=== PATIENT | male | born 1965 | race African-American/Black ===

== ENCOUNTER 2018-05-01 11:59 | Inpatient (IN) | payer OTHER ==
[2018-05-01 12:52] VITALS: BMI 27.4
--- NOTE | 2018-05-01 14:16 | HP ---
CIWA Score - CIWA Score Nausea/Vomitin Muscle Tremors: 2 Anxiety: 2 Agitation: 2 Paroxysmal Sweats: 1-Minimal Palms Moist Orientation: 0-Oriented Tacttile Disturbances: 1-Very Mild Itch/Numbness Auditory Disturbances: 1-Very Mild Visual Disturbances: 1-Very Mild Sensitivity Headache: 2-Mild CIWA-Ar Total Score: 14 Admission ROS BHS - HPI Chief Complaint: i need help to stop drinking alcohol .cocaine Allergies/Adverse Reactions: Allergies Allergy/AdvReac Type Severity Reaction Status Date / Time No Known Allergies Allergy Verified 05/01/18 14:26 History of Present Illness: this 53 years old male with alcohol and cocaine dependence,seeking detox, withdrawal symptom,last treatment 01/29 [facility] completed hiv positive [id number] on medication neuropathy asthma nicotine dependence multiple admissions but keep relapsing Exam Limitations: No Limitations - Ebola screening Have you traveled outside of the country in the last 21 days: No Have you had contact with anyone from an Ebola affected area: No Have you been sick,other than usual withdrawal symptoms: No Do you have a fever: No - Review of Systems Constitutional: Loss of Appetite, Malaise, Night Sweats, Changes in sleep, Weakness, Unintentional Wgt. Loss EENT: reports: Nose Congestion Respiratory: reports: Other (asthma) Cardiac: reports: No Symptoms Reported, Other (cardiomyopathy) GI: reports: Diarrhea, Nausea, Abdominal cramping : reports: No Symptoms Reported Musculoskeletal: reports: Back Pain, Muscle Pain Integumentary: reports: Dryness Neuro: reports: Headache, Tremors Endocrine: reports: No Symptoms Reported Hematology: reports: No Symptoms Reported, Other (hiv) Psychiatric: reports: No Sypmtoms Reported, Judgement Intact, Mood/Affect Appropiate, Orientated x3 (insomnia) Patient History - Patient Medical History Hx Anemia: No Hx Asthma: Yes (on albutrol inhaler) Hx Chronic Obstructive Pulmonary Disease (COPD): No Hx Cancer: No Hx Cardiac Disorders: Yes (cardiomyopathy) Hx Congestive Heart Failure: No Hx Hypertension: No Hx Hypercholesterolemia: No Hx Pacemaker: No HX Cerebrovascular Accident: No Hx Seizures: No Hx Dementia: No Hx Diabetes: No Hx Gastrointestinal Disorders: Yes (gerd) Hx Liver Disease: No Hx Genitourinary Disorders: No Hx Sexually Transmitted Disorders: No Hx Renal Disease (ESRD): No Hx Thyroid Disease: No Hx Human Immunodeficiency Virus (HIV): Yes (since 1997) Hx Hepatitis C: No Hx Depression: No Hx Suicide Attempt: No Hx Bipolar Disorder: No Hx Schizophrenia: No Other Medical History: no suicidal,no homicidal - Patient Surgical History Past Surgical History: No - Smoking Cessation Smoking history: Never smoked - Substance & Tx. History Hx Alcohol Use: Yes Hx Substance Use: Yes Substance Use Type: Alcohol, Cocaine Hx Substance Use Treatment: Yes (01/29 [facility]) - Substances Abused Alcohol Route: Oral Frequency: Daily Amount used: 25-96 oz beers or 1 pint liquor Age of first use: 19 Date of Last Use: 05/01/18 Cocaine Route: Smoking Frequency: 1-3 times last 30 days Amount used: $100 and up Age of first use: 29 Date of Last Use: 04/27/18 Family Disease History - Family Disease History Family Disease History: Other: Father (alcohol), Mother (alcohol) Admission Physical Exam BHS - Vital Signs Vital Signs: Vital Signs - 24 hr 05/01/18 12:49 Temperature 97 F L Pulse Rate 78 Respiratory 18 Rate Blood Pressure 131/79 - Physical General Appearance: Yes: Moderate Distress, Tremorous, Irritable, Sweating, Anxious HEENTM: Yes: Normal ENT Inspection, RASHAWN, Pharynx Normal Respiratory: Yes: Lungs Clear, Normal Breath Sounds, No Respiratory Distress Neck: Yes: Within Normal Limits, Supple, Trachea in good position Breast: Yes: Within Normal Limits Cardiology: Yes: Within Normal Limits, Regular Rhythm, Regular Rate, S1, S2 Abdominal: Yes: Within Normal Limits, Normal Bowel Sounds, Soft Genitourinary: Yes: Within Normal Limits Back: Yes: Muscle Spasm Musculoskeletal: Yes: Back pain, Muscle Pain Extremities: Yes: Tremors Neurological: Yes: 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 intact, Alert, Motor Strength 5/5 Integumentary: Yes: Dry Lymphatic: Yes: Within Normal Limits - Diagnostic (1) Alcohol dependence with uncomplicated withdrawal Current Visit: Yes Status: Acute (2) Cocaine dependence Current Visit: Yes Status: Acute (3) HIV (human immunodeficiency virus infection) Current Visit: Yes Status: Acute (4) Asthma Current Visit: Yes Status: Acute (5) Neuropathy Current Visit: Yes Status: Acute (6) Cardiomyopathy Current Visit: Yes Status: Acute (7) Positive PPD Current Visit: Yes Status: Acute (8) Insomnia Current Visit: Yes Status: Acute Cleared for Admission [facility] - Detox or Rehab [facility] Level of Care: Medically Managed Detox Regimen/Protocol: Librium [facility] Breath Alcohol Content Breath Alcohol Content: 0.086 Urine Drug Screen - Results Drug Screen Negative: No Urine Drug Screen Results: TALI-Cocaine
[2018-05-01] MEDS ORDERED: MAGNESIUM CITRATE 300 ML BOTTLE PO PRN (14:33)
[2018-05-01] MEDS ORDERED: IBUPROFEN 400 MG TABLET (FP) PO PRN (14:33)
[2018-05-01] MEDS ORDERED: MENTHOL/PHENOL 1 EACH UD MM PRN (14:33)
[2018-05-01] MEDS ORDERED: MAGNESIUM HYDROX 2400MG/30ML ORAL SUSPENSION 30 ML CUP PO PRN (14:33)
[2018-05-01] MEDS ORDERED: ACETAMINOPHEN 325 MG TABLET (FP) PO PRN (14:33)
[2018-05-01] MEDS ORDERED: guaiFENesin/D-METHORPHAN HB 10 ML UNIT-DOSE CUPS PO PRN (14:33)
[2018-05-01] MEDS ORDERED: MAG HYDROX/AL HYDROX/SIMETH 30 ML UNIT-DOSE CUP PO PRN (14:33)
[2018-05-01] MEDS ORDERED: hydrOXYzine PAMOATE 50 MG CAPSULE (FP) PO PRN (14:33)
[2018-05-01] MEDS ORDERED: LOPERAMIDE HCL 2 MG CAPSULE PO PRN (14:33)
[2018-05-01] MEDS ORDERED: chlordiazePOXIDE HCL 25 MG CAPSULE PO PRN (14:33)
[2018-05-01] MEDS ORDERED: P-EPHED 60MG/TRIPROLIDI 2.5MG TABLET PO PRN (14:33)
[2018-05-01] MEDS ORDERED: ALBUTEROL SO4 8 GM HFA INHALER IH PRN (14:39)
[2018-05-01] MEDS ORDERED: PATIENT'S OWN MEDICATION (NON-FORMULARY) (Pregabalin [Lyrica -] 150 MG) PO PRN (14:39)
--- NOTE | 2018-05-01 15:38 | EKG ---
Test Reason : Blood Pressure : / mmHG Vent. Rate : 066 BPM Atrial Rate : 066 BPM P-R Int : 146 ms QRS Dur : 084 ms QT Int : 366 ms P-R-T Axes : 070 054 242 degrees QTc Int : 383 ms NORMAL SINUS RHYTHM POSSIBLE LEFT ATRIAL ENLARGEMENT LEFT VENTRICULAR HYPERTROPHY WITH REPOLARIZATION ABNORMALITY ST ELEVATION, CONSIDER EARLY REPOLARIZATION, PERICARDITIS, OR INJURY ABNORMAL ECG NO PREVIOUS ECGS AVAILABLE Confirmed by ELIZABETH ORTIZ, ORLY ([id number]) on 05/01/2018 3:37:54 PM Referred By: Confirmed By:ORLY JOHNSON MD
[2018-05-01] MEDS: chlordiazePOXIDE HCL 25 MG CAPSULE PO SCH ×2 (17:28→22:30)
[2018-05-01 17:51] LABS: URINE APPEARANCE CLEAR; URINE BILIRUBIN NEGATIVE (<2.0 mg/dL); URINE COLOR COLORLESS; URINE GLUCOSE (UA) NEGATIVE (NEGATIVE); URINE KETONE NEGATIVE (NEGATIVE); URINE LEUK ESTERASE NEGATIVE (NEGATIVE); URINE NITRITE NEGATIVE (NEGATIVE); URINE PROTEIN NEGATIVE (NEGATIVE); URINE UROBILINOGEN NEGATIVE mg/dL (0.2-1.0)
[2018-05-01] MEDS ORDERED: MELATONIN 5 MG TABLETS PO PRN (22:00)
[2018-05-01] MEDS: PREGABALIN 75 MG CAPSULE PO SCH (22:30)
[2018-05-01] MEDS: THIAMINE HCL 100 MG TABLET (FP) PO SCH (22:30)
[2018-05-02] MEDS: chlordiazePOXIDE HCL 25 MG CAPSULE PO SCH ×4 (06:10→22:26)
[2018-05-02 10:16] LABS: HEMATOCRIT 40.9 % (35.4-49); HEMOGLOBIN 13.5 GM/dL (11.7-16.9); MCHC 33.1 g/dl (32.0-35.9); MEAN CELL VOLUME 96.6 fl (80-96); PLATELET COUNT 139 K/MM3 (134-434); RBC 4.24 M/mm3 (4.00-5.60); RDW 14.3 % (11.9-15.9)
[2018-05-02] MEDS: PREGABALIN 75 MG CAPSULE PO SCH ×2 (10:21→22:27)
[2018-05-02] MEDS: LISINOPRIL 5 MG TABLET (FP) PO SCH (10:21)
[2018-05-02] MEDS: PRENATAL VITAMINS W/ FOLIC ACID TABLET (FP) PO SCH (10:21)
[2018-05-02 10:44] LABS: ALBUMIN 3.6 g/dl (3.4-5.0); ALK PHOS 57 U/L (45-117); ANION GAP 8 MMOL/L (8-16); BILIRUBIN,TOTAL 0.6 mg/dL (0.2-1); BLOOD UREA NITROGEN 11 mg/dL (7-18); CALCIUM 9.5 mg/dL (8.5-10.1); CHLORIDE 108 mmol/L (98-107); CO2 27 mmol/L (21-32); CREATININE 1.3 mg/dL (0.55-1.3); GLUCOSE,RANDOM 94 mg/dL (74-106); SGOT/AST 27 U/L (15-37); SGPT/ALT 30 U/L (13-61); SODIUM 143 mmol/L (136-145); TOT PROT 6.8 g/dl (6.4-8.2)
--- NOTE | 2018-05-02 11:50 | PN ---
S CIWA - CIWA Score Nausea/Vomitin-No Nausea/No Vomiting Muscle Tremors: 4-Moderate,w/Arms Extend Anxiety: 3 Agitation: 3 Paroxysmal Sweats: 3 Orientation: 0-Oriented Tacttile Disturbances: 0-None Auditory Disturbances: 0-None Visual Disturbances: 0-None Headache: 0-None Present CIWA-Ar Total Score: 13 BHS Progress Note (SOAP) Subjective: sweats interrupted sleep agitation I need cream for my acne on my face irritable Objective: 05/02/18 11:48 Vital Signs Temperature 97.9 F 05/02/18 09:25 Pulse Rate 62 05/02/18 09:25 Respiratory Rate 18 05/02/18 09:25 Blood Pressure 104/69 05/02/18 09:25 O2 Sat by Pulse Oximetry (%) Laboratory Tests 05/01/18 05/02/18 05/02/18 17:30 07:00 07:00 WBC 3.0 L RBC 4.24 Hgb 13.5 Hct 40.9 MCV 96.6 H MCH 32.0 MCHC 33.1 RDW 14.3 Plt Count 139 MPV 11.0 Sodium 143 Potassium 4.0 Chloride 108 H Carbon Dioxide 27 Anion Gap 8 BUN 11 Creatinine 1.3 Creat Clearance w eGFR 57.53 Random Glucose 94 Calcium 9.5 Total Bilirubin 0.6 AST 27 ALT 30 Alkaline Phosphatase 57 Total Protein 6.8 Albumin 3.6 Urine Color Colorless Urine Appearance Clear Urine pH 6.0 Ur Specific [place] 1.002 L Urine Protein Negative Urine Glucose (UA) Negative Urine Ketones Negative Urine Blood Negative Urine Nitrite Negative Urine Bilirubin Negative Urine Urobilinogen Negative Ur Leukocyte Esterase Negative RPR Titer 05/02/18 07:00 WBC RBC Hgb Hct MCV MCH MCHC RDW Plt Count MPV Sodium Potassium Chloride Carbon Dioxide Anion Gap BUN Creatinine Creat Clearance w eGFR Random Glucose Calcium Total Bilirubin AST ALT Alkaline Phosphatase Total Protein Albumin Urine Color Urine Appearance Urine pH Ur Specific [place] Urine Protein Urine Glucose (UA) Urine Ketones Urine Blood Urine Nitrite Urine Bilirubin Urine Urobilinogen Ur Leukocyte Esterase RPR Titer Nonreactive aaox3 ambulating no acute distress Assessment: 05/02/18 11:49 withdrawal sx Plan: continue detox increase fluids cleocin topical solution ordered.
[2018-05-02] MEDS ORDERED: FLU VACCINE QUAD 60 MCG/0.5 ML (MDV 18-19) IM ONE (12:00)
[2018-05-02] MEDS: CLINDAMYCIN PHOSPHATE 1% TOPICAL SOLUTION 30 ML BOTTLE TP SCH ×2 (16:12→22:28)
[2018-05-02] MEDS: THIAMINE HCL 100 MG TABLET (FP) PO SCH (22:26)
[2018-05-03] MEDS: chlordiazePOXIDE HCL 25 MG CAPSULE PO SCH ×2 (05:07→10:45)
[2018-05-03] MEDS: CLINDAMYCIN PHOSPHATE 1% TOPICAL SOLUTION 30 ML BOTTLE TP SCH ×2 (09:57→22:33)
[2018-05-03] MEDS: PRENATAL VITAMINS W/ FOLIC ACID TABLET (FP) PO SCH (10:44)
[2018-05-03] MEDS: PREGABALIN 75 MG CAPSULE PO SCH ×2 (10:44→22:32)
[2018-05-03] MEDS: LISINOPRIL 5 MG TABLET (FP) PO SCH (10:44)
--- NOTE | 2018-05-03 14:31 | PN ---
S CIWA - CIWA Score Nausea/Vomitin Muscle Tremors: 2 Anxiety: 3 Agitation: 4-Moderately Restless Paroxysmal Sweats: 3 Orientation: 0-Oriented Tacttile Disturbances: 0-None Auditory Disturbances: 0-None Visual Disturbances: 0-None Headache: 0-None Present CIWA-Ar Total Score: 14 BHS Progress Note (SOAP) Subjective: Sleep disturbance sweats Objective: 05/03/18 14:30 A & O x 3 Noted ambulating steadily on unit Not in acute distress Vital Signs Temperature 98.3 F 05/03/18 14:03 Pulse Rate 82 05/03/18 14:03 Respiratory Rate 18 05/03/18 14:03 Blood Pressure 100/54 L 05/03/18 14:03 O2 Sat by Pulse Oximetry (%) Assessment: 05/03/18 14:30 withdrawal sx anxiety Plan: continue detox
[2018-05-03] MEDS: chlordiazePOXIDE 5 MG CAPSULE PO SCH ×2 (17:17→22:30)
[2018-05-03] MEDS: THIAMINE HCL 100 MG TABLET (FP) PO SCH (22:30)
[2018-05-04] MEDS: chlordiazePOXIDE 5 MG CAPSULE PO SCH ×2 (05:10→10:08)
[2018-05-04] MEDS ORDERED: ERGOCALCIFEROL (VITAMIN D2) 50,000 UNIT CAPSULE (FP) PO SCH (10:00)
[2018-05-04] MEDS: LISINOPRIL 5 MG TABLET (FP) PO SCH (10:08)
[2018-05-04] MEDS: PREGABALIN 75 MG CAPSULE PO SCH ×2 (10:08→22:01)
[2018-05-04] MEDS: PRENATAL VITAMINS W/ FOLIC ACID TABLET (FP) PO SCH (10:09)
[2018-05-04] MEDS: CLINDAMYCIN PHOSPHATE 1% TOPICAL SOLUTION 30 ML BOTTLE TP SCH ×2 (10:12→22:02)
--- NOTE | 2018-05-04 12:06 | PN ---
BHS Progress Note (SOAP) Subjective: feeling better no tremor less sweat social with peers in day room Objective: 05/04/18 12:06 Vital Signs Temperature 97.7 F 05/04/18 09:29 Pulse Rate 73 05/04/18 09:29 Respiratory Rate 18 05/04/18 09:29 Blood Pressure 112/67 05/04/18 09:29 O2 Sat by Pulse Oximetry (%) Laboratory Last Values WBC 3.0 K/mm3 (4.0-10.0) L 05/02/18 07:00 RBC 4.24 M/mm3 (4.00-5.60) 05/02/18 07:00 Hgb 13.5 GM/dL (11.7-16.9) 05/02/18 07:00 Hct 40.9 % (35.4-49) 05/02/18 07:00 MCV 96.6 fl (80-96) H 05/02/18 07:00 MCH 32.0 pg (25.7-33.7) 05/02/18 07:00 MCHC 33.1 g/dl (32.0-35.9) 05/02/18 07:00 RDW 14.3 % (11.9-15.9) 05/02/18 07:00 Plt Count 139 K/MM3 (134-434) 05/02/18 07:00 MPV 11.0 fl (7.5-11.1) 05/02/18 07:00 Sodium 143 mmol/L (136-145) 05/02/18 07:00 Potassium 4.0 mmol/L (3.5-5.1) 05/02/18 07:00 Chloride 108 mmol/L (98-107) H 05/02/18 07:00 Carbon Dioxide 27 mmol/L (21-32) 05/02/18 07:00 Anion Gap 8 MMOL/L (8-16) 05/02/18 07:00 BUN 11 mg/dL (7-18) 05/02/18 07:00 Creatinine 1.3 mg/dL (0.55-1.3) 05/02/18 07:00 Creat Clearance w eGFR 57.53 (>60) 05/02/18 07:00 Random Glucose 94 mg/dL (74-106) 05/02/18 07:00 Calcium 9.5 mg/dL (8.5-10.1) 05/02/18 07:00 Total Bilirubin 0.6 mg/dL (0.2-1) 05/02/18 07:00 AST 27 U/L (15-37) 05/02/18 07:00 ALT 30 U/L (13-61) 05/02/18 07:00 Alkaline Phosphatase 57 U/L (45-117) 05/02/18 07:00 Total Protein 6.8 g/dl (6.4-8.2) 05/02/18 07:00 Albumin 3.6 g/dl (3.4-5.0) 05/02/18 07:00 Urine Color Colorless 05/01/18 17:30 Urine Appearance Clear 05/01/18 17:30 Urine pH 6.0 (5.0-8.0) 05/01/18 17:30 Ur Specific [place] 1.002 (1.010-1.035) L 05/01/18 17:30 Urine Protein Negative (NEGATIVE) 05/01/18 17:30 Urine Glucose (UA) Negative (NEGATIVE) 05/01/18 17:30 Urine Ketones Negative (NEGATIVE) 05/01/18 17:30 Urine Blood Negative (NEGATIVE) 05/01/18 17:30 Urine Nitrite Negative (NEGATIVE) 05/01/18 17:30 Urine Bilirubin Negative (<2.0 mg/dL) 05/01/18 17:30 Urine Urobilinogen Negative mg/dL (0.2-1.0) 05/01/18 17:30 Ur Leukocyte Esterase Negative (NEGATIVE) 05/01/18 17:30 RPR Titer Nonreactive (NONREACTIVE) 05/02/18 07:00 lab noted Assessment: 05/04/18 12:06 mild withdrawal sx Plan: medically supervised detox patient agrees to follow up with infection disease specialist for wbs
[2018-05-04] MEDS: chlordiazePOXIDE HCL 10 MG CAPSULE PO SCH ×2 (20:51→21:59)
[2018-05-04] MEDS: THIAMINE HCL 100 MG TABLET (FP) PO SCH (21:59)
[2018-05-05] MEDS: chlordiazePOXIDE HCL 10 MG CAPSULE PO SCH (06:29)
[2018-05-05 09:22] VITALS: BP 117/78; PULSE 64; TEMP 98.8
[2018-05-05] MEDS: PREGABALIN 75 MG CAPSULE PO SCH (09:56)
[2018-05-05] MEDS: LISINOPRIL 5 MG TABLET (FP) PO SCH (09:56)
[2018-05-05] MEDS: PRENATAL VITAMINS W/ FOLIC ACID TABLET (FP) PO SCH (09:56)
[2018-05-05] MEDS: CLINDAMYCIN PHOSPHATE 1% TOPICAL SOLUTION 30 ML BOTTLE TP SCH (10:04)
--- NOTE | 2018-05-05 10:44 | DS ---
[facility] Detox Discharge Summary Admission Date: 05/01/18 Discharge Date: 05/05/18 - History Present History: Alcohol Dependence Additional Comments: 53 years old male admitted on 05/01/18 for alcohol withdrawal sx completed alcohol detox regimen tolerated well denies alcohol withdrawal sx alert oriented x 3 no acute distress aftercare [facility] / [facility] - Physical Exam Results Vital Signs: Vital Signs Temperature 98.8 F 05/05/18 09:22 Pulse Rate 64 05/05/18 09:22 Respiratory Rate 18 05/05/18 09:22 Blood Pressure 117/78 05/05/18 09:22 O2 Sat by Pulse Oximetry (%) Pertinent Admission Physical Exam Findings: alcohol withdrawal sx Vital Signs Temperature 98.8 F 05/05/18 09:22 Pulse Rate 64 05/05/18 09:22 Respiratory Rate 18 05/05/18 09:22 Blood Pressure 117/78 05/05/18 09:22 O2 Sat by Pulse Oximetry (%) Laboratory Last Values WBC 3.0 K/mm3 (4.0-10.0) L 05/02/18 07:00 RBC 4.24 M/mm3 (4.00-5.60) 05/02/18 07:00 Hgb 13.5 GM/dL (11.7-16.9) 05/02/18 07:00 Hct 40.9 % (35.4-49) 05/02/18 07:00 MCV 96.6 fl (80-96) H 05/02/18 07:00 MCH 32.0 pg (25.7-33.7) 05/02/18 07:00 MCHC 33.1 g/dl (32.0-35.9) 05/02/18 07:00 RDW 14.3 % (11.9-15.9) 05/02/18 07:00 Plt Count 139 K/MM3 (134-434) 05/02/18 07:00 MPV 11.0 fl (7.5-11.1) 05/02/18 07:00 Sodium 143 mmol/L (136-145) 05/02/18 07:00 Potassium 4.0 mmol/L (3.5-5.1) 05/02/18 07:00 Chloride 108 mmol/L (98-107) H 05/02/18 07:00 Carbon Dioxide 27 mmol/L (21-32) 05/02/18 07:00 Anion Gap 8 MMOL/L (8-16) 05/02/18 07:00 BUN 11 mg/dL (7-18) 05/02/18 07:00 Creatinine 1.3 mg/dL (0.55-1.3) 05/02/18 07:00 Creat Clearance w eGFR 57.53 (>60) 05/02/18 07:00 Random Glucose 94 mg/dL (74-106) 05/02/18 07:00 Calcium 9.5 mg/dL (8.5-10.1) 05/02/18 07:00 Total Bilirubin 0.6 mg/dL (0.2-1) 05/02/18 07:00 AST 27 U/L (15-37) 05/02/18 07:00 ALT 30 U/L (13-61) 05/02/18 07:00 Alkaline Phosphatase 57 U/L (45-117) 05/02/18 07:00 Total Protein 6.8 g/dl (6.4-8.2) 05/02/18 07:00 Albumin 3.6 g/dl (3.4-5.0) 05/02/18 07:00 Urine Color Colorless 05/01/18 17:30 Urine Appearance Clear 05/01/18 17:30 Urine pH 6.0 (5.0-8.0) 05/01/18 17:30 Ur Specific [place] 1.002 (1.010-1.035) L 05/01/18 17:30 Urine Protein Negative (NEGATIVE) 05/01/18 17:30 Urine Glucose (UA) Negative (NEGATIVE) 05/01/18 17:30 Urine Ketones Negative (NEGATIVE) 05/01/18 17:30 Urine Blood Negative (NEGATIVE) 05/01/18 17:30 Urine Nitrite Negative (NEGATIVE) 05/01/18 17:30 Urine Bilirubin Negative (<2.0 mg/dL) 05/01/18 17:30 Urine Urobilinogen Negative mg/dL (0.2-1.0) 05/01/18 17:30 Ur Leukocyte Esterase Negative (NEGATIVE) 05/01/18 17:30 RPR Titer Nonreactive (NONREACTIVE) 05/02/18 07:00 lab noted patient agrees to follow up with infection disease provider for wbc repeat - Treatment Hospital Course: Detox Protocol Followed, Detoxed Safely, Responded well, Discharged Condition Good, Rehab Referral Accepted Patient has Accepted a Rehab Referral to: [facility] / [facility] - Medication Discharge Medications: Ambulatory Orders Elviteg/Cob/Emtri/Tenof Alafen [Genvoya Tablet] 1 each PO HS 05/01/18 Ergocalciferol [Vitamin D2] 1 cap PO WEEKLY 05/01/18 Multivitamin [One Daily] 1 each PO DAILY 05/01/18 Pregabalin [Lyrica -] 150 mg PO BID 05/01/18 Pregabalin [Lyrica -] 150 mg PO HS PRN 05/01/18 Albuterol Sulfate Inhaler - [Ventolin HFA Inhaler -] 2 inh PO Q4H PRN #1 inhaler 05/04/18 Lisinopril 5 mg PO DAILY #30 tablet 05/04/18 - Diagnosis (1) Alcohol dependence with uncomplicated withdrawal Status: Acute (2) Asthma Status: Chronic Qualifiers: Asthma severity: mild Asthma persistence: intermittent Asthma complication type: with status asthmaticus Qualified Code(s): J45.22 - Mild intermittent asthma with status asthmaticus (3) HIV (human immunodeficiency virus infection) Status: Chronic (4) Neuropathy Status: Chronic (5) Positive PPD Status: Resolved - AMA Did Patient Leave Against Medical Advice: No
== END 2018-05-05 09:58 | disposition home or self-care (01) | DRG 774 ==
LOC: YASAS 11:59 → Y6N 14:37
PROC: HZ2ZZZZ Detoxification Services for Substance Abuse Treatment (ICD-10-PCS; principal; 2018-05-01)
DX: F10.230 Alcohol dependence with withdrawal, uncomplicated (principal); F14.20 Cocaine dependence, uncomplicated; F17.210 Nicotine dependence, cigarettes, uncomplicated; F41.9 Anxiety disorder, unspecified; J45.22 Mild intermittent asthma with status asthmaticus; Z21 Asymptomatic human immunodeficiency virus [HIV] infection status; G62.9 Polyneuropathy, unspecified; R76.11 Nonspecific reaction to tuberculin skin test without active tuberculosis; I42.9 Cardiomyopathy, unspecified; G47.00 Insomnia, unspecified; K21.9 Gastro-esophageal reflux disease without esophagitis
CPT/HCPCS: 36415; 71046-TC-FY; 80053; 81003; 85027; 86593; 90688; 93005; 93010; G0008

== ENCOUNTER 2018-09-23 11:06 | Inpatient (IN) | payer OTHER ==
[2018-09-23 13:58] VITALS: BMI 27.4
--- NOTE | 2018-09-23 14:18 | HP ---
CIWA Score Nausea/Vomitin-No Nausea/No Vomiting Muscle Tremors: 2 Anxiety: 3 Agitation: 0-Normal Activity Paroxysmal Sweats: 2 Orientation: 0-Oriented Tacttile Disturbances: 2-Mild Itch/Numbness/Burn (TOES) Auditory Disturbances: 1-Very Mild Visual Disturbances: 2-Mild Sensitivity Headache: 0-None Present CIWA-Ar Total Score: 12 - Admission Criteria [facility] Guidelines: Admission for Medically Managed Detox: Requires at least one of the followin. CIWA greater than 12 2. Seizures within the past 24 hours 3. Delirium tremens within the past 24 hours 4. Hallucinations within the past 24 hours 5. Acute intervention needed for co occurring medical disorder 6. Acute intervention needed for co occurring psychiatric disorder 7. Severe withdrawal that cannot be handled at a lower level of care (continued vomiting, continued diarrhea, abnormal vital signs) requiring intravenous medication and/or fluids 8. Patient presents the following: CIWA greater than 12 Admission Criteria Met: Admission criteria met Admission ROS S - HPI Chief Complaint: " my life has become imaginable, again" Allergies/Adverse Reactions: Allergies Allergy/AdvReac Type Severity Reaction Status Date / Time No Known Allergies Allergy Verified 05/01/18 14:26 History of Present Illness: 53 yo male with hx of alcohol and nicotine dependence is here seeking detox. Last detox [facility] April 2018 reports relapse soon after. PMHX: HIV, cardiomyopathy, proteinuria,GERD, neuropathy, and depression. Denies hx of seizures. Reports hx of ETOH blackouts. Others' Prescriptions Patient Name: Elvin Moncada Date: 1965 Address: [address] [place] [address] Sex: Male Rx Written Rx Dispensed Drug Quantity Days Supply Prescriber Name 07/11/2018 09/09/2018 lyrica 150 mg capsule 90 30 [place], V 07/11/2018 08/09/2018 lyrica 150 mg capsule 90 30 [place], V 02/03/2018 07/14/2018 lyrica 150 mg capsule 90 30 [place], V Exam Limitations: No Limitations - Ebola screening Have you traveled outside of the country in the last 21 days: No Have you had contact with anyone from an Ebola affected area: No Have you been sick,other than usual withdrawal symptoms: No - Review of Systems Constitutional: Other (weight gain) EENT: reports: See HPI, Throat Pain, Other (light sensitivity) Respiratory: reports: SOB with Exertion Cardiac: reports: Lightheadedness, Other (CP from GERD) GI: reports: Diarrhea, Poor Fluid Intake, Indigestion : reports: No Symptoms Reported Musculoskeletal: reports: No Symptoms Reported Integumentary: reports: Dryness Neuro: reports: Weakness Endocrine: reports: Increased Thirst Hematology: reports: No Symptoms Reported Psychiatric: reports: Orientated x3, Anxious, Depressed Other Systems: Reviewed and Negative Patient History - Patient Medical History Hx Anemia: No Hx Asthma: Yes (on albutrol inhaler) Hx Chronic Obstructive Pulmonary Disease (COPD): No Hx Cancer: No Hx Cardiac Disorders: Yes (cardiomyopathy) Hx Congestive Heart Failure: No Hx Hypertension: No Hx Hypercholesterolemia: No Hx Pacemaker: No HX Cerebrovascular Accident: No Hx Seizures: No Hx Dementia: No Hx Diabetes: No Hx Gastrointestinal Disorders: Yes (gerd) Hx Liver Disease: No Hx Genitourinary Disorders: No Hx Sexually Transmitted Disorders: No Hx Renal Disease (ESRD): No Hx Thyroid Disease: No Hx Human Immunodeficiency Virus (HIV): Yes (since 1997) Hx Hepatitis C: No Hx Depression: No Hx Suicide Attempt: No Hx Bipolar Disorder: No Hx Schizophrenia: No - Patient Surgical History Past Surgical History: No Other Surgical History: L ear sx as a child. Anesthesia Reaction: No - PPD History Previous Implant?: No (NEG x-ray 04/2018) PPD to be Administered?: No - Smoking Cessation Smoking history: Never smoked Have you smoked in the past 12 months: No Hx Chewing Tobacco Use: No Initiated information on smoking cessation: No - Substance & Tx. History Hx Alcohol Use: Yes Hx Substance Use: Yes Substance Use Type: Alcohol, Cocaine Hx Substance Use Treatment: Yes ( Detox [facility] 05/01/18 -05/05/18) - Substances Abused ALCOHOL Route: Oral Frequency: Daily Amount used: 72 -96 OZ BEER Age of first use: 19 Date of Last Use: 09/23/18 Cocaine Route: Smoking Frequency: 1-3 times last 30 days Amount used: $10 - $500 Age of first use: 29 Date of Last Use: 09/20/18 Family Disease History - Family Disease History Family Disease History: Other: Grandparent (cardiomaiopathy), Father (alcohol), Mother (alcohol) Admission Physical Exam BHS - Vital Signs Vital Signs: Vital Signs - 24 hr 09/23/18 13:57 Temperature 98.9 F Pulse Rate 89 Respiratory 18 Rate Blood Pressure 100/54 L - Physical General Appearance: Yes: Appropriately Dressed, Disheveled, Alcohol on Breath, Thin, Anxious HEENTM: Yes: EOMI, Hearing grossly Normal, Normal ENT Inspection, Normocephalic , Normal Voice, RASHAWN, Pharynx Normal, Tm's normal, Nasal Congestion Respiratory: Yes: Chest Non-Tender, Lungs Clear, Normal Breath Sounds, No Respiratory Distress, No Accessory Muscle Use Neck: Yes: Within Normal Limits Breast: Yes: Breast Exam Deferred Cardiology: Yes: Regular Rhythm, Regular Rate Abdominal: Yes: Normal Bowel Sounds, Non Tender, Flat, Soft Genitourinary: Yes: Within Normal Limits Back: Yes: Normal Inspection Musculoskeletal: Yes: Within Normal Limits Extremities: Yes: Normal Capillary Refill, Normal Inspection, Normal Range of Motion Neurological: Yes: 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 NML intact, Fully Oriented, Alert, Motor Strength 5/5, Depressed Affect Integumentary: Yes: Normal Color, Warm, Moist Lymphatic: Yes: Within Normal Limits - Diagnostic (1) GERD (gastroesophageal reflux disease) Current Visit: Yes Status: Acute (2) Alcohol dependence with uncomplicated withdrawal Current Visit: No Status: Acute (3) Cardiomyopathy Current Visit: No Status: Acute (4) Cocaine dependence Current Visit: No Status: Acute (5) Asthma Current Visit: Yes Status: Chronic Qualifiers: Asthma severity: mild Asthma persistence: intermittent Asthma complication type: with status asthmaticus Qualified Code(s): J45.22 - Mild intermittent asthma with status asthmaticus (6) HIV (human immunodeficiency virus infection) Current Visit: Yes Status: Chronic (7) Neuropathy Current Visit: Yes Status: Chronic (8) Acne Current Visit: Yes Status: Acute Qualifiers: Acne type: unspecified acne Qualified Code(s): L70.9 - Acne, unspecified Cleared for Admission S - Detox or Rehab [facility] Level of Care: Medically Managed Detox Regimen/Protocol: Librium [facility] Breath Alcohol Content Breath Alcohol Content: 0.120 Urine Drug Screen - Results Drug Screen Negative: No Urine Drug Screen Results: TALI-Cocaine Inpatient Rehab Admission - Rehab Decision to Admit Inpatient rehab admission?: No
[2018-09-23] MEDS ORDERED: ONDANSETRON *ODT* 4 MG TABLET SL PRN (14:50)
[2018-09-23] MEDS ORDERED: hydrOXYzine PAMOATE 25 MG CAPSULE (FP) PO PRN (14:50)
[2018-09-23] MEDS ORDERED: MAGNESIUM CITRATE 300 ML BOTTLE PO PRN (14:50)
[2018-09-23] MEDS ORDERED: BISMUTH SUBSALICYLATE 524 MG/30 ML UD PO PRN (14:50)
[2018-09-23] MEDS ORDERED: ACETAMINOPHEN 325 MG TABLET (FP) PO PRN ×2 (14:50)
[2018-09-23] MEDS ORDERED: MAGNESIUM HYDROX 2400MG/30ML ORAL SUSPENSION 30 ML CUP PO PRN (14:50)
[2018-09-23] MEDS ORDERED: METHOCARBAMOL 500 MG TABLET PO PRN (14:50)
[2018-09-23] MEDS ORDERED: MENTHOL/PHENOL 1 EACH UD MM PRN (14:50)
[2018-09-23] MEDS ORDERED: IBUPROFEN 400 MG TABLET (FP) PO PRN (14:50)
[2018-09-23] MEDS ORDERED: chlordiazePOXIDE HCL 25 MG CAPSULE PO PRN (14:50)
[2018-09-23] MEDS ORDERED: ALBUTEROL SO4 8 GM HFA INHALER IH PRN (14:50)
[2018-09-23] MEDS ORDERED: MAG HYDROX/AL HYDROX/SIMETH 30 ML UNIT-DOSE CUP PO PRN (14:50)
[2018-09-23] MEDS ORDERED: PREGABALIN 75 MG CAPSULE PO PRN (14:53)
[2018-09-23] MEDS ORDERED: BENZOYL PEROXIDE 5% 60 GM GEL..GRAM. TP ONE (14:59)
[2018-09-23] MEDS: chlordiazePOXIDE HCL 25 MG CAPSULE PO SCH (22:36)
[2018-09-23] MEDS: PREGABALIN 75 MG CAPSULE PO SCH (22:36)
[2018-09-23] MEDS: THIAMINE HCL 100 MG TABLET (FP) PO SCH (22:37)
[2018-09-23] MEDS: MELATONIN 5 MG TABLETS PO PRN (22:37)
[2018-09-23] MEDS: CLINDAMYCIN PHOSPHATE 1% TOPICAL SOLUTION 30 ML BOTTLE TP SCH (22:38)
[2018-09-24 01:57] LABS: URINE APPEARANCE CLEAR; URINE BILIRUBIN NEGATIVE (<2.0 mg/dL); URINE COLOR STRAW; URINE GLUCOSE (UA) NEGATIVE (NEGATIVE); URINE KETONE NEGATIVE (NEGATIVE); URINE LEUK ESTERASE NEGATIVE (NEGATIVE); URINE NITRITE NEGATIVE (NEGATIVE); URINE PROTEIN NEGATIVE (NEGATIVE); URINE UROBILINOGEN NEGATIVE mg/dL (0.2-1.0)
[2018-09-24] MEDS: chlordiazePOXIDE HCL 25 MG CAPSULE PO SCH ×4 (05:27→22:05)
[2018-09-24] MEDS: PRENATAL VITAMINS W/ FOLIC ACID TABLET (FP) PO SCH (10:36)
[2018-09-24] MEDS: LISINOPRIL 5 MG TABLET (FP) PO SCH (10:36)
[2018-09-24] MEDS: PREGABALIN 75 MG CAPSULE PO SCH ×2 (10:36→22:05)
[2018-09-24 10:44] LABS: ALBUMIN 4.3 g/dl (3.4-5.0); ALK PHOS 68 U/L (45-117); ANION GAP 7 MMOL/L (8-16); BILIRUBIN,TOTAL 0.3 mg/dL (0.2-1); BLOOD UREA NITROGEN 16 mg/dL (7-18); CALCIUM 9.1 mg/dL (8.5-10.1); CHLORIDE 110 mmol/L (98-107); CO2 24 mmol/L (21-32); CREATININE 1.6 mg/dL (0.55-1.3); GLUCOSE,RANDOM 84 mg/dL (74-106); POTASSIUM 4.3 mmol/L (3.5-5.1); SGOT/AST 20 U/L (15-37); SGPT/ALT 25 U/L (13-61); SODIUM 140 mmol/L (136-145); TOT PROT 7.8 g/dl (6.4-8.2)
[2018-09-24 11:00] LABS: HEMOGLOBIN 13.9 GM/dL (11.7-16.9); MCH 33.5 pg (25.7-33.7); MCHC 34.7 g/dl (32.0-35.9); MEAN CELL VOLUME 96.5 fl (80-96); MEAN PLT VOLUME 11.4 fl (7.5-11.1); PLATELET COUNT 186 K/MM3 (134-434); RBC 4.15 M/mm3 (4.00-5.60); WHITE BLOOD COUNT 4.5 K/mm3 (4.0-10.0)
--- NOTE | 2018-09-24 11:22 | PN ---
[facility] CIWA - CIWA Score Nausea/Vomitin-No Nausea/No Vomiting Muscle Tremors: 1-None Visible, but [place] Anxiety: 1-Mildly Anxious Agitation: 2 Paroxysmal Sweats: 1-Minimal Palms Moist Orientation: 1-Uncertain about Date Tacttile Disturbances: 0-None Auditory Disturbances: 0-None Visual Disturbances: 0-None Headache: 1-Very Mild CIWA-Ar Total Score: 7 S Progress Note (SOAP) Subjective: tremor poor concentration irritable Objective: 09/24/18 11:32 Vital Signs Temperature 98.3 F 09/24/18 09:12 Pulse Rate 81 09/24/18 11:00 Respiratory Rate 16 09/24/18 11:00 Blood Pressure 114/76 09/24/18 09:12 O2 Sat by Pulse Oximetry (%) Laboratory Last Values WBC 4.5 K/mm3 (4.0-10.0) 09/24/18 06:00 RBC 4.15 M/mm3 (4.00-5.60) 09/24/18 06:00 Hgb 13.9 GM/dL (11.7-16.9) 09/24/18 06:00 Hct 40.0 % (35.4-49) 09/24/18 06:00 MCV 96.5 fl (80-96) H 09/24/18 06:00 MCH 33.5 pg (25.7-33.7) 09/24/18 06:00 MCHC 34.7 g/dl (32.0-35.9) 09/24/18 06:00 RDW 13.0 % (11.9-15.9) 09/24/18 06:00 Plt Count 186 K/MM3 (134-434) D 09/24/18 06:00 MPV 11.4 fl (7.5-11.1) H 09/24/18 06:00 Sodium 140 mmol/L (136-145) 09/24/18 06:00 Potassium 4.3 mmol/L (3.5-5.1) 09/24/18 06:00 Chloride 110 mmol/L (98-107) H 09/24/18 06:00 Carbon Dioxide 24 mmol/L (21-32) 09/24/18 06:00 Anion Gap 7 MMOL/L (8-16) L 09/24/18 06:00 BUN 16 mg/dL (7-18) 09/24/18 06:00 Creatinine 1.6 mg/dL (0.55-1.3) H 09/24/18 06:00 Creat Clearance w eGFR 45.27 (>60) 09/24/18 06:00 Random Glucose 84 mg/dL (74-106) 09/24/18 06:00 Calcium 9.1 mg/dL (8.5-10.1) 09/24/18 06:00 Total Bilirubin 0.3 mg/dL (0.2-1) 09/24/18 06:00 AST 20 U/L (15-37) 09/24/18 06:00 ALT 25 U/L (13-61) 09/24/18 06:00 Alkaline Phosphatase 68 U/L (45-117) 09/24/18 06:00 Total Protein 7.8 g/dl (6.4-8.2) 09/24/18 06:00 Albumin 4.3 g/dl (3.4-5.0) 09/24/18 06:00 Urine Color [place] 09/23/18 23:30 Urine Appearance Clear 09/23/18 23:30 Urine pH 5.0 (5.0-8.0) 09/23/18 23:30 Ur Specific [place] 1.003 (1.010-1.035) L 09/23/18 23:30 Urine Protein Negative (NEGATIVE) 09/23/18 23:30 Urine Glucose (UA) Negative (NEGATIVE) 09/23/18 23:30 Urine Ketones Negative (NEGATIVE) 09/23/18 23:30 Urine Blood Negative (NEGATIVE) 09/23/18 23:30 Urine Nitrite Negative (NEGATIVE) 09/23/18 23:30 Urine Bilirubin Negative (<2.0 mg/dL) 09/23/18 23:30 Urine Urobilinogen Negative mg/dL (0.2-1.0) 09/23/18 23:30 Ur Leukocyte Esterase Negative (NEGATIVE) 09/23/18 23:30 lab noted Assessment: 09/24/18 11:32 withdrawal sx Plan: continue detox
--- NOTE | 2018-09-24 12:23 | CONSULT ---
[facility] Psychiatric Consult - Data Date of interview: 09/24/18 Admission source: [facility] Identifying data: Readmission to [facility] for this 53 y/o AA male self- referred for detoxification (alcohol, cocaine). Interviwed on 3 . 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 Substance Abuse History: Confirmed by the patient in this interview. Details in current [facility] report : Smoking history: Never smoked. Have you smoked in the past 12 months: No. Hx Chewing Tobacco Use: No. Initiated information on smoking cessation: No. - Substance & Tx. History. Hx Alcohol Use: Yes. Hx Substance Use: Yes. Substance Use Type: Alcohol, Cocaine. Hx Substance Use Treatment: Yes ( Detox [facility] 05/01/18 -05/05/18). - Substances Abused. ALCOHOL. Route: Oral. Frequency: Daily. Amount used: 72 -96 OZ BEER. Age of first use: 19. Date of Last Use: 09/23/18. Cocaine. Route: Smoking. Frequency: 1-3 times last 30 days. Amount used: $10 - $500. Age of first use: 29. Date of Last Use: 09/20/18 Medical History: Remarkable for HIV infection since 1997 (on ART medications), neuropathy, cardiomyopathy, HTN, GERD and bronchial asthma. Psychiatric History: No reported history of psychiatric hospitalizations. Patient denies having ever received a psychiatric diagnosis although he endorses previous contact with a private therapist, in [facility], to address issues of stress and substance abuse (from 2014 to 2016). No prior exposure to psychotropic medications. No history of suicide attempts. Physical/Sexual Abuse/Trauma History: Patient denies history of abuse. Additional Comment: Urine Drug Screen Results: TALI-Cocaine. Noted. Mental Status Exam - Mental Status Exam Alert and Oriented to: Time, Place, Person Cognitive Function: Good Patient Appearance: Well Groomed (short stature) Mood: Happy, Euthymic Affect: Appropriate, Normal Range Patient Behavior: Appropriate, Cooperative Speech Pattern: Clear Voice Loudness: Normal Thought Process: Intact, Goal Oriented Thought Disorder: Not Present Hallucinations: Denies Suicidal Ideation: Denies Homicidal Ideation: Denies Insight/Judgement: Poor Sleep: Well Appetite: Good Muscle strength/Tone: Normal Gait/Station: Normal Psychiatric Findings - Problem List ([place] 1, 2,3) (1) Alcohol dependence with uncomplicated withdrawal Current Visit: Yes Status: Acute (2) Cocaine dependence Current Visit: Yes Status: Chronic - Initial Treatment Plan Initial Treatment Plan: Psychoeducation. Sleep hygiene. Detoxification. AA meetings. Relapse prevention : discussed with the patient. Verbalizes no motivation for MAT interventions. Observation.
[2018-09-24] MEDS: CLINDAMYCIN PHOSPHATE 1% TOPICAL SOLUTION 30 ML BOTTLE TP SCH (15:56)
[2018-09-24] MEDS: THIAMINE HCL 100 MG TABLET (FP) PO SCH (22:05)
[2018-09-24] MEDS: MELATONIN 5 MG TABLETS PO PRN (22:06)
[2018-09-25] MEDS: chlordiazePOXIDE HCL 25 MG CAPSULE PO SCH ×3 (05:25→17:26)
[2018-09-25] MEDS: LISINOPRIL 5 MG TABLET (FP) PO SCH (10:21)
[2018-09-25] MEDS: PREGABALIN 75 MG CAPSULE PO SCH ×2 (10:21→22:31)
[2018-09-25] MEDS: PRENATAL VITAMINS W/ FOLIC ACID TABLET (FP) PO SCH (10:21)
--- NOTE | 2018-09-25 17:21 | PN ---
[facility] CIWA - CIWA Score Nausea/Vomitin-No Nausea/No Vomiting Muscle Tremors: 3 Anxiety: 3 Agitation: 1-Slight > Activity Paroxysmal Sweats: 3 Orientation: 0-Oriented Tacttile Disturbances: 1-Very Mild Itch/Numbness Auditory Disturbances: 0-None Visual Disturbances: 0-None Headache: 0-None Present CIWA-Ar Total Score: 11 BHS Progress Note (SOAP) Subjective: NOTE: FOR PRIVACY REASONS, PATIENT REQUESTS TO HAVE AM MORNING ROUNDS DISCUSSION IN PRIVATE SETTING. THUS, AM DAILY ROUNDS DISCUSSION OF PATIENT'S SYMPTOMS / QUESTIONS CONDUCTED IN PRIVATE CLOSED OFFICE ON DETOX UNIT. Tremors, Sweating, Body Aches. Objective: PATIENT A & O X 3, OBSERVED AMBULATING ON UNIT. IN NO ACUTE DISTRESS. 09/25/18 17:17 Vital Signs Temperature 96.0 F L 09/25/18 13:58 Pulse Rate 84 09/25/18 13:58 Respiratory Rate 18 09/25/18 13:58 Blood Pressure 126/72 09/25/18 13:58 O2 Sat by Pulse Oximetry (%) Laboratory Tests 09/23/18 09/24/18 09/24/18 23:30 06:00 06:00 WBC 4.5 RBC 4.15 Hgb 13.9 Hct 40.0 MCV 96.5 H MCH 33.5 MCHC 34.7 RDW 13.0 Plt Count 186 D MPV 11.4 H Sodium 140 Potassium 4.3 Chloride 110 H Carbon Dioxide 24 Anion Gap 7 L BUN 16 Creatinine 1.6 H Creat Clearance w eGFR 45.27 Random Glucose 84 Calcium 9.1 Total Bilirubin 0.3 AST 20 ALT 25 Alkaline Phosphatase 68 Total Protein 7.8 Albumin 4.3 Urine Color Straw Urine Appearance Clear Urine pH 5.0 Ur Specific [place] 1.003 L Urine Protein Negative Urine Glucose (UA) Negative Urine Ketones Negative Urine Blood Negative Urine Nitrite Negative Urine Bilirubin Negative Urine Urobilinogen Negative Ur Leukocyte Esterase Negative RPR Titer 09/24/18 06:00 WBC RBC Hgb Hct MCV MCH MCHC RDW Plt Count MPV Sodium Potassium Chloride Carbon Dioxide Anion Gap BUN Creatinine Creat Clearance w eGFR Random Glucose Calcium Total Bilirubin AST ALT Alkaline Phosphatase Total Protein Albumin Urine Color Urine Appearance Urine pH Ur Specific [place] Urine Protein Urine Glucose (UA) Urine Ketones Urine Blood Urine Nitrite Urine Bilirubin Urine Urobilinogen Ur Leukocyte Esterase RPR Titer Nonreactive LABS NOTED. Assessment: 09/25/18 17:17 WITHDRAWAL SYMPTOMS. Plan: CONTINUE DETOX. INCREASE DAILY PO FLUID INTAKE. D/C IBUPROFEN AND MAGNESIUM-CONTAINING MEDS. FOR ABNORMAL ADMISSION RENAL LAB VALUES. BMP TOMORROW AM FOR ABNORMAL ADMISSION RENAL LAB VALUES.
[2018-09-25] MEDS: MELATONIN 5 MG TABLETS PO PRN (22:31)
[2018-09-25] MEDS: THIAMINE HCL 100 MG TABLET (FP) PO SCH (22:31)
[2018-09-25] MEDS: chlordiazePOXIDE HCL 10 MG CAPSULE PO SCH (22:31)
[2018-09-25] MEDS: CLINDAMYCIN PHOSPHATE 1% TOPICAL SOLUTION 30 ML BOTTLE TP PRN (22:33)
[2018-09-25] MEDS ORDERED: chlordiazePOXIDE HCL 10 MG CAPSULE PO PRN (23:00)
[2018-09-26] MEDS: chlordiazePOXIDE HCL 10 MG CAPSULE PO SCH ×3 (05:27→17:53)
[2018-09-26 10:13] LABS: ANION GAP 8 MMOL/L (8-16); BLOOD UREA NITROGEN 13 mg/dL (7-18); CALCIUM 8.8 mg/dL (8.5-10.1); CHLORIDE 109 mmol/L (98-107); CO2 25 mmol/L (21-32); CREATININE 1.3 mg/dL (0.55-1.3); GLUCOSE,RANDOM 98 mg/dL (74-106); POTASSIUM 4.1 mmol/L (3.5-5.1); SODIUM 141 mmol/L (136-145)
[2018-09-26] MEDS: PRENATAL VITAMINS W/ FOLIC ACID TABLET (FP) PO SCH (10:25)
[2018-09-26] MEDS: PREGABALIN 75 MG CAPSULE PO SCH ×2 (10:25→22:33)
[2018-09-26] MEDS: LISINOPRIL 5 MG TABLET (FP) PO SCH (10:25)
--- NOTE | 2018-09-26 16:38 | PN ---
[facility] Progress Note (SOAP) Subjective: Patient denies current Withdrawal / Detox symptoms and reports that he feels well overall. Objective: PATIENT A & O X 2 (UNCERTAIN ABOUT CURRENT DAY / DATE). PATIENT OBSERVED AMBULATING ON UNIT. IN NO ACUTE DISTRESS. 09/26/18 16:37 Vital Signs Temperature 97.4 F L 09/26/18 13:44 Pulse Rate 74 09/26/18 13:44 Respiratory Rate 18 09/26/18 13:44 Blood Pressure 104/84 09/26/18 13:44 O2 Sat by Pulse Oximetry (%) Laboratory Tests 09/23/18 09/24/18 09/24/18 23:30 06:00 06:00 WBC 4.5 RBC 4.15 Hgb 13.9 Hct 40.0 MCV 96.5 H MCH 33.5 MCHC 34.7 RDW 13.0 Plt Count 186 D MPV 11.4 H Sodium 140 Potassium 4.3 Chloride 110 H Carbon Dioxide 24 Anion Gap 7 L BUN 16 Creatinine 1.6 H Creat Clearance w eGFR 45.27 Random Glucose 84 Calcium 9.1 Total Bilirubin 0.3 AST 20 ALT 25 Alkaline Phosphatase 68 Total Protein 7.8 Albumin 4.3 Urine Color Straw Urine Appearance Clear Urine pH 5.0 Ur Specific [place] 1.003 L Urine Protein Negative Urine Glucose (UA) Negative Urine Ketones Negative Urine Blood Negative Urine Nitrite Negative Urine Bilirubin Negative Urine Urobilinogen Negative Ur Leukocyte Esterase Negative RPR Titer 09/24/18 09/26/18 06:00 07:40 WBC RBC Hgb Hct MCV MCH MCHC RDW Plt Count MPV Sodium 141 Potassium 4.1 Chloride 109 H Carbon Dioxide 25 Anion Gap 8 BUN 13 Creatinine 1.3 Creat Clearance w eGFR 57.53 Random Glucose 98 Calcium 8.8 Total Bilirubin AST ALT Alkaline Phosphatase Total Protein Albumin Urine Color Urine Appearance Urine pH Ur Specific [place] Urine Protein Urine Glucose (UA) Urine Ketones Urine Blood Urine Nitrite Urine Bilirubin Urine Urobilinogen Ur Leukocyte Esterase RPR Titer Nonreactive LABS NOTED. RESULTS OF BMP NOTED. IMPROVEMENT IN GFR, BUN, AND IN CREATININE LEVELS NOTED. 09/26/18 16:39 Assessment: 09/26/18 16:37 WITHDRAWAL SYMPTOMS. Plan: CONTINUE DETOX. INCREASE DAILY PO FLUID INTAKE.
[2018-09-26 21:28] VITALS: BP 105/65; PULSE 70; TEMP 98.3
[2018-09-26] MEDS: CLINDAMYCIN PHOSPHATE 1% TOPICAL SOLUTION 30 ML BOTTLE TP PRN (21:30)
[2018-09-26] MEDS: THIAMINE HCL 100 MG TABLET (FP) PO SCH (22:33)
[2018-09-26] MEDS: MELATONIN 5 MG TABLETS PO PRN (22:34)
[2018-09-26] MEDS ORDERED: chlordiazePOXIDE HCL 10 MG CAPSULE PO SCH (23:00)
--- NOTE | 2018-09-27 19:56 | DS ---
[facility] Detox Discharge Summary Admission Date: 09/23/18 Discharge Date: 09/27/18 - History Present History: Alcohol Dependence, Cocaine Dependence Additional Comments: PATIENT LEFT DETOX UNIT EARLY IN AM TO GET TO [facility] ([place], [place]). THUS, SACK CLEANER UNABLE TO DO PRE-DISCHARGE MEDICAL ASSESSMENT. YESTERDAY, PATIENT ADVISED TO FOLLOW-UP WITH [facility] WHEN POSSIBLE AFTER DISCHARGE FROM REHAB FOR GENERAL MEDICAL ASSESSMENT AND FOR ABNORMAL RENAL LAB VALUES NOTED WHILE ADMITTED FOR DETOX. PATIENT VERBALIZED UNDERSTANDING OF RECOMMENDATION. COPIES OF RESULTS OF ALL LABS DRAWN WHILE ADMITTED FOR DETOX GIVEN TO PATIENT YESTERDAY SO THAT HE MAKE TAKE THEM WITH HIM WHEN HE GOES FOR EVALUATION WITH HIS [facility]. Pertinent Past History: History of Cardiomyopathy, G.E.R.D., Asthma, H.I.V., History of Neuropathy. - Physical Exam Results Vital Signs: Vital Signs Temperature 98.3 F 09/26/18 21:27 Pulse Rate 70 09/26/18 21:27 Respiratory Rate 18 09/27/18 00:30 Blood Pressure 105/65 09/26/18 21:27 O2 Sat by Pulse Oximetry (%) Pertinent Admission Physical Exam Findings: WITHDRAWAL SYMPTOMS. Laboratory Tests 09/23/18 09/24/18 09/24/18 23:30 06:00 06:00 WBC 4.5 RBC 4.15 Hgb 13.9 Hct 40.0 MCV 96.5 H MCH 33.5 MCHC 34.7 RDW 13.0 Plt Count 186 D MPV 11.4 H Sodium 140 Potassium 4.3 Chloride 110 H Carbon Dioxide 24 Anion Gap 7 L BUN 16 Creatinine 1.6 H Creat Clearance w eGFR 45.27 Random Glucose 84 Calcium 9.1 Total Bilirubin 0.3 AST 20 ALT 25 Alkaline Phosphatase 68 Total Protein 7.8 Albumin 4.3 Urine Color Straw Urine Appearance Clear Urine pH 5.0 Ur Specific [place] 1.003 L Urine Protein Negative Urine Glucose (UA) Negative Urine Ketones Negative Urine Blood Negative Urine Nitrite Negative Urine Bilirubin Negative Urine Urobilinogen Negative Ur Leukocyte Esterase Negative RPR Titer 09/24/18 09/26/18 06:00 07:40 WBC RBC Hgb Hct MCV MCH MCHC RDW Plt Count MPV Sodium 141 Potassium 4.1 Chloride 109 H Carbon Dioxide 25 Anion Gap 8 BUN 13 Creatinine 1.3 Creat Clearance w eGFR 57.53 Random Glucose 98 Calcium 8.8 Total Bilirubin AST ALT Alkaline Phosphatase Total Protein Albumin Urine Color Urine Appearance Urine pH Ur Specific [place] Urine Protein Urine Glucose (UA) Urine Ketones Urine Blood Urine Nitrite Urine Bilirubin Urine Urobilinogen Ur Leukocyte Esterase RPR Titer Nonreactive LABS NOTED. - Treatment Hospital Course: Detox Protocol Followed, Detoxed Safely, Responded well, Discharged Condition Good, Rehab Referral Accepted Patient has Accepted a Rehab Referral to: [facility] ([place], [place]). - Medication Discharge Medications: Ambulatory Orders Elviteg/Cob/Emtri/Tenof Alafen [Genvoya Tablet] 1 each PO HS 05/01/18 Ergocalciferol [Vitamin D2] 1 cap PO WEEKLY 05/01/18 Multivitamin [One Daily] 1 each PO DAILY 05/01/18 Pregabalin [Lyrica -] 150 mg PO BID 05/01/18 Pregabalin [Lyrica -] 150 mg PO HS PRN 05/01/18 Albuterol Sulfate Inhaler - [Ventolin HFA Inhaler -] 2 inh PO Q4H PRN #1 inhaler 05/04/18 Lisinopril 5 mg PO DAILY #30 tablet 05/04/18 - Diagnosis (1) Acne Status: Acute Qualifiers: Acne type: unspecified acne Qualified Code(s): L70.9 - Acne, unspecified (2) Alcohol dependence with uncomplicated withdrawal Status: Acute (3) Cardiomyopathy Status: Acute Qualifiers: Cardiomyopathy type: unspecified Qualified Code(s): I42.9 - Cardiomyopathy , unspecified (4) GERD (gastroesophageal reflux disease) Status: Acute Qualifiers: Esophagitis presence: esophagitis presence not specified Qualified Code(s) : K21.9 - Gastro-esophageal reflux disease without esophagitis (5) Asthma Status: Chronic Qualifiers: Asthma severity: mild Asthma persistence: intermittent Asthma complication type: with status asthmaticus Qualified Code(s): J45.22 - Mild intermittent asthma with status asthmaticus (6) Cocaine dependence Status: Chronic Qualifiers: Substance use status: uncomplicated Qualified Code(s): F14.20 - Cocaine dependence, uncomplicated (7) HIV (human immunodeficiency virus infection) Status: Chronic Qualifiers: HIV symptom status: unspecified Qualified Code(s): B20 - Human immunodeficiency virus [HIV] disease (8) Neuropathy Status: Chronic - AMA Did Patient Leave Against Medical Advice: No
[2018-09-28] MEDS ORDERED: ERGOCALCIFEROL (VITAMIN D2) 50,000 UNIT CAPSULE (FP) PO SCH (10:00)
== END 2018-09-27 06:57 | disposition home or self-care (01) | DRG 774 ==
LOC: YASAS 11:06 → Y3N 15:43
PROVIDERS: ADMIT Surgery; ATTEND Surgery
PROC: HZ2ZZZZ Detoxification Services for Substance Abuse Treatment (ICD-10-PCS; principal; 2018-09-23)
DX: F10.230 Alcohol dependence with withdrawal, uncomplicated (principal); F14.20 Cocaine dependence, uncomplicated; Z21 Asymptomatic human immunodeficiency virus [HIV] infection status; J45.22 Mild intermittent asthma with status asthmaticus; I42.9 Cardiomyopathy, unspecified; G62.9 Polyneuropathy, unspecified; K21.9 Gastro-esophageal reflux disease without esophagitis; L70.9 Acne, unspecified
CPT/HCPCS: 36415; 80048; 80053; 81003; 85027; 86593

== ENCOUNTER 2019-04-20 19:42 | Inpatient (IN) | payer OTHER ==
[2019-04-20 23:30] VITALS: BMI 26.3
--- NOTE | 2019-04-21 00:40 | HP ---
CIWA Score Nausea/Vomitin (vomiting x 2) Muscle Tremors: 3 Anxiety: 4-Mod. Anxious/Guarded Agitation: 2 Paroxysmal Sweats: 3 Orientation: 0-Oriented Tacttile Disturbances: 0-None Auditory Disturbances: 0-None Visual Disturbances: 0-None Headache: 3-Moderate CIWA-Ar Total Score: 18 - Admission Criteria [facility]ASAS Guidelines: Admission for Medically Managed Detox: Requires at least one of the followin. CIWA greater than 12 2. Seizures within the past 24 hours 3. Delirium tremens within the past 24 hours 4. Hallucinations within the past 24 hours 5. Acute intervention needed for co occurring medical disorder 6. Acute intervention needed for co occurring psychiatric disorder 7. Severe withdrawal that cannot be handled at a lower level of care (continued vomiting, continued diarrhea, abnormal vital signs) requiring intravenous medication and/or fluids 8. Admitting History and Physical - Smoking History Smoking history: Never smoked Have you smoked in the past 12 months: No - Alcohol/Substance Use Hx Alcohol Use: Yes Admission ROS [facility] Chief Complaint: Alcohol withdrawal symptoms Allergies/Adverse Reactions: Allergies Allergy/AdvReac Type Severity Reaction Status Date / Time No Known Allergies Allergy Verified 04/20/19 23:20 History of Present Illness: 54 years old male with 35 years of alcohol dependence is seeking admission t5o detox. Patient has been in previous detox and reports insignificant period of sobriety. He has medical history of neuropathy, asthma, cardiomyopathy, positive PPD and HIV+. He denies suicide attempt and suicidal ideation at this time. Exam Limitations: No Limitations - Ebola screening Have you traveled outside of the country in the last 21 days: No (N) Have you had contact with anyone from an Ebola affected area: No Do you have a fever: No - Review of Systems Constitutional: Chills, Loss of Appetite, Night Sweats, Changes in sleep EENT: reports: No Symptoms Reported Respiratory: reports: No Symptoms reported Cardiac: reports: No Symptoms Reported GI: reports: Poor Appetite, Poor Fluid Intake : reports: No Symptoms Reported Musculoskeletal: reports: Back Pain Integumentary: reports: Dryness, Flushing Neuro: reports: Headache, Tremors Endocrine: reports: No Symptoms Reported Hematology: reports: No Symptoms Reported Psychiatric: reports: Mood/Affect Appropiate, Orientated x3, Anxious, Depressed Other Systems: Reviewed and Negative Patient History - Patient Medical History Hx Anemia: No Hx Asthma: Yes (Albuterol) Hx Chronic Obstructive Pulmonary Disease (COPD): No Hx Cancer: No Hx Cardiac Disorders: Yes (cardiomyopathy) Hx Congestive Heart Failure: No Hx Hypertension: No Hx Hypercholesterolemia: No Hx Pacemaker: No HX Cerebrovascular Accident: No Hx Seizures: No Hx Dementia: No Hx Diabetes: No Hx Gastrointestinal Disorders: No Hx Liver Disease: No Hx Genitourinary Disorders: No Hx Sexually Transmitted Disorders: No Hx Renal Disease (ESRD): No Hx Thyroid Disease: No Hx Human Immunodeficiency Virus (HIV): Yes (since 1997-) Hx Hepatitis C: No Hx Depression: No Hx Suicide Attempt: No Hx Bipolar Disorder: No Hx Schizophrenia: No Other Medical History: NEUROPATHY - [facility] - Patient Surgical History Past Surgical History: No Other Surgical History: L ear sx as a child., colonoscopy 5 years ago Anesthesia Reaction: No - PPD History Previous Implant?: Yes Documented Results: Positive w/proof Implanted On Prior [facility] Admission?: No PPD to be Administered?: No - Reproductive History Patient is a Female of Child Bearing Age (11 -55 yrs old): No (MALE) - Smoking Cessation Smoking history: Never smoked Have you smoked in the past 12 months: No Hx Chewing Tobacco Use: No Initiated information on smoking cessation: No - Substance & Tx. History Hx Alcohol Use: Yes Hx Substance Use: Yes Substance Use Type: Alcohol, Cocaine, Tranquilizers - Substances abused Alcohol Substance route: Oral Frequency: Daily Amount used: 1PINT OF VODKA- 4 COBRAS 25 OZ BEERS Age of first use: 19 Date of last use: 04/20/19 Cocaine Substance route: Smoking Frequency: 3-6 times per week Amount used: $30-300$ Age of first use: 29 Date of last use: 04/20/19 Admission Physical Exam BHS - Vital Signs Vital Signs: Vital Signs - 24 hr 04/20/19 23:24 Temperature 98.0 F Pulse Rate 77 Respiratory 16 Rate Blood Pressure 142/91 - Physical General Appearance: Yes: Within Normal Limits HEENTM: Yes: Within Normal Limits Respiratory: Yes: Lungs Clear, Normal Breath Sounds, No Respiratory Distress Neck: Yes: Supple Breast: Yes: Breast Exam Deferred Cardiology: Yes: Regular Rhythm, Regular Rate Abdominal: Yes: Normal Bowel Sounds Genitourinary: Yes: Within Normal Limits Back: Yes: Normal Inspection Musculoskeletal: Yes: Within Normal Limits Extremities: Yes: Normal Inspection Neurological: Yes: Normal Mood/Affect Integumentary: Yes: Warm Lymphatic: Yes: Within Normal Limits - Diagnostic (1) Alcohol dependence with uncomplicated withdrawal Current Visit: Yes Status: Chronic (2) Cardiomyopathy Current Visit: No Status: Chronic Qualifiers: Cardiomyopathy type: unspecified Qualified Code(s): I42.9 - Cardiomyopathy , unspecified (3) GERD (gastroesophageal reflux disease) Current Visit: Yes Status: Chronic Qualifiers: Esophagitis presence: esophagitis presence not specified Qualified Code(s) : K21.9 - Gastro-esophageal reflux disease without esophagitis (4) Asthma Current Visit: Yes Status: Chronic Qualifiers: Asthma severity: mild Asthma persistence: intermittent Asthma complication type: with status asthmaticus Qualified Code(s): J45.22 - Mild intermittent asthma with status asthmaticus (5) Cocaine dependence Current Visit: Yes Status: Chronic Qualifiers: Substance use status: uncomplicated Qualified Code(s): F14.20 - Cocaine dependence, uncomplicated (6) HIV (human immunodeficiency virus infection) Current Visit: Yes Status: Chronic Qualifiers: HIV symptom status: unspecified Qualified Code(s): B20 - Human immunodeficiency virus [HIV] disease (7) Neuropathy Current Visit: Yes Status: Chronic (8) Positive PPD Current Visit: Yes Status: Resolved Cleared for Admission S - Detox or Rehab [facility] Level of Care: Medically Managed Detox Regimen/Protocol: Librium Breathalyzer - Breathalyzer Breathalyzer: 0.070 Urine Drug Screen - Test Device Lot number: [id number] Expiration date: 12/12/20 - Control Is test valid?: Yes - Results Drug screen NEGATIVE: No Urine drug screen results: TALI-Cocaine, MET-Methamphetamine Inpatient Rehab Admission - Rehab Decision to Admit Inpatient rehab admission?: No
[2019-04-21] MEDS ORDERED: BISMUTH SUBSALICYLATE 524 MG/30 ML UD PO PRN (01:05)
[2019-04-21] MEDS ORDERED: MAGNESIUM HYDROX 2400MG/30ML ORAL SUSPENSION 30 ML CUP PO PRN (01:05)
[2019-04-21] MEDS ORDERED: ACETAMINOPHEN 325 MG TABLET (FP) PO PRN ×2 (01:05)
[2019-04-21] MEDS ORDERED: IBUPROFEN 400 MG TABLET (FP) PO PRN (01:05)
[2019-04-21] MEDS ORDERED: MENTHOL/PHENOL 1 EACH UD MM PRN (01:05)
[2019-04-21] MEDS ORDERED: chlordiazePOXIDE HCL 25 MG CAPSULE PO PRN (01:05)
[2019-04-21] MEDS ORDERED: METHOCARBAMOL 500 MG TABLET PO PRN (01:05)
[2019-04-21] MEDS ORDERED: MAG HYDROX/AL HYDROX/SIMETH 30 ML UNIT-DOSE CUP PO PRN (01:05)
[2019-04-21] MEDS ORDERED: hydrOXYzine PAMOATE 25 MG CAPSULE (FP) PO PRN (01:05)
[2019-04-21] MEDS ORDERED: MAGNESIUM CITRATE 300 ML BOTTLE PO PRN (01:05)
[2019-04-21] MEDS ORDERED: ERGOCALCIFEROL (VIT D2) 50,000 UNIT (1.25 MG) CAPSULE PO SCH ×2 (01:15→11:05)
[2019-04-21] MEDS: chlordiazePOXIDE HCL 25 MG CAPSULE PO SCH ×4 (06:35→22:35)
[2019-04-21] MEDS: PRENATAL VITAMINS W/ FOLIC ACID TABLET (FP) PO SCH (10:48)
[2019-04-21] MEDS: LISINOPRIL 5 MG TABLET (FP) PO SCH (10:48)
--- NOTE | 2019-04-21 11:29 | PN ---
[facility] CIWA - CIWA Score Nausea/Vomitin-No Nausea/No Vomiting Muscle Tremors: 3 Anxiety: 3 Agitation: 3 Paroxysmal Sweats: 3 Orientation: 0-Oriented Tacttile Disturbances: 0-None Auditory Disturbances: 0-None Visual Disturbances: 0-None Headache: 0-None Present CIWA-Ar Total Score: 12 BHS Progress Note (SOAP) Subjective: restless agitation body aches sweats I need my HIV medication Objective: 04/21/19 11:25 Vital Signs Temperature 97.7 F 04/21/19 09:18 Pulse Rate 61 04/21/19 09:18 Respiratory Rate 18 04/21/19 09:18 Blood Pressure 109/60 04/21/19 09:18 O2 Sat by Pulse Oximetry (%) labs pending aaox3 ambulating no acute distress Assessment: 04/21/19 11:26 withdrawals Plan: continue detox increase fluids hiv medication ordered pt was made aware we will not order lyrica for him d/t the sedation it can create with the other medication he is taking (example the librium) therefore pt agreed to have gabapentin 100mg tid ordered while under our care for his neuropathy.
[2019-04-21] MEDS: GABAPENTIN 100 MG CAPSULE (FP) PO SCH ×2 (14:46→21:50)
[2019-04-21] MEDS: ELVITEG/COB/EMTRI/TENOF (GENVOYA) TABLET (NF) PO SCH (21:49)
[2019-04-21] MEDS: MELATONIN 5 MG TABLETS PO PRN (21:50)
[2019-04-21] MEDS: THIAMINE HCL 100 MG TABLET (FP) PO SCH (21:50)
[2019-04-22] MEDS: chlordiazePOXIDE HCL 25 MG CAPSULE PO SCH ×4 (06:30→22:19)
[2019-04-22] MEDS: GABAPENTIN 100 MG CAPSULE (FP) PO SCH ×3 (06:31→22:18)
[2019-04-22] MEDS ORDERED: ERGOCALCIFEROL (VIT D2) 50,000 UNIT (1.25 MG) CAPSULE PO ONE (10:00)
[2019-04-22] MEDS ORDERED: ERGOCALCIFEROL (VIT D2) 50,000 UNIT (1.25 MG) CAPSULE PO SCH (10:00)
[2019-04-22] MEDS: LISINOPRIL 5 MG TABLET (FP) PO SCH (10:23)
[2019-04-22] MEDS: PRENATAL VITAMINS W/ FOLIC ACID TABLET (FP) PO SCH (10:23)
--- NOTE | 2019-04-22 10:57 | EKG ---
Test Reason : Blood Pressure : / mmHG Vent. Rate : 059 BPM Atrial Rate : 059 BPM P-R Int : 148 ms QRS Dur : 086 ms QT Int : 448 ms P-R-T Axes : 069 061 -14 degrees QTc Int : 443 ms SINUS BRADYCARDIA POSSIBLE LEFT ATRIAL ENLARGEMENT LEFT VENTRICULAR HYPERTROPHY ST ELEVATION, CONSIDER EARLY REPOLARIZATION, PERICARDITIS, OR INJURY T WAVE ABNORMALITY, CONSIDER INFERIOR ISCHEMIA ABNORMAL ECG WHEN COMPARED WITH ECG OF 01-MAY-2018 15:11, ST ELEVATION NOW PRESENT IN INFERIOR LEADS ST NO LONGER ELEVATED IN ANTERIOR LEADS T WAVE INVERSION NO LONGER EVIDENT IN LATERAL LEADS QT HAS LENGTHENED Confirmed by SABINE ORTIZ, BRIGETTE ([id number]) on 04/22/2019 10:57:17 AM Referred By: RITA Confirmed By:BRIGETTE REGALADO MD
[2019-04-22 12:04] LABS: HEMOGLOBIN 12.6 GM/dL (11.7-16.9); MCH 32.8 pg (25.7-33.7); MCHC 33.9 g/dl (32.0-35.9); MEAN CELL VOLUME 96.8 fl (80-96); MEAN PLT VOLUME 10.3 fl (7.5-11.1); PLATELET COUNT 144 K/MM3 (134-434); RBC 3.82 M/mm3 (4.00-5.60); RDW 13.2 % (11.9-15.9); WHITE BLOOD COUNT 3.1 K/mm3 (4.0-10.0)
[2019-04-22 12:09] LABS: ALBUMIN 3.3 g/dl (3.4-5.0); BILIRUBIN,TOTAL 0.5 mg/dL (0.2-1); BLOOD UREA NITROGEN 12.4 mg/dL (7-18); CALCIUM 8.8 mg/dL (8.5-10.1); CREATININE 1.2 mg/dL (0.55-1.3); TOT PROT 6.4 g/dl (6.4-8.2)
--- NOTE | 2019-04-22 12:14 | PN ---
[facility] CIWA - CIWA Score Nausea/Vomitin-No Nausea/No Vomiting Muscle Tremors: 3 Anxiety: 2 Agitation: 2 Paroxysmal Sweats: 3 Orientation: 0-Oriented Tacttile Disturbances: 0-None Auditory Disturbances: 0-None Visual Disturbances: 0-None Headache: 0-None Present CIWA-Ar Total Score: 10 S Progress Note (SOAP) Subjective: sweats tired irritable interrupted sleep Objective: 04/22/19 12:11 Vital Signs Temperature 98.1 F 04/22/19 10:16 Pulse Rate 60 04/22/19 10:16 Respiratory Rate 18 04/22/19 10:16 Blood Pressure 110/63 04/22/19 10:16 O2 Sat by Pulse Oximetry (%) Laboratory Tests 04/22/19 04/22/19 08:45 08:45 WBC 3.1 L RBC 3.82 L Hgb 12.6 Hct 37.0 MCV 96.8 H MCH 32.8 MCHC 33.9 RDW 13.2 Plt Count 144 D MPV 10.3 Sodium 141 Potassium 4.0 Chloride 109 H Carbon Dioxide 27 Anion Gap 5 L BUN 12.4 Creatinine 1.2 Est GFR (CKD-EPI)AfAm 78.43 Est GFR (CKD-EPI)NonAf 67.67 Random Glucose 120 H Calcium 8.8 Total Bilirubin 0.5 AST 27 ALT 24 Alkaline Phosphatase 56 Total Protein 6.4 Albumin 3.3 L labs noted aaox3 ambulating no acute distress Assessment: 04/22/19 12:11 withdrawals Plan: continue detox increase fluids
[2019-04-22] MEDS ORDERED: FLU VACCINE QUAD 60 MCG/0.5 ML (MDV 19-20) IM ONE (12:45)
[2019-04-22] MEDS: THIAMINE HCL 100 MG TABLET (FP) PO SCH (22:18)
[2019-04-22] MEDS: ELVITEG/COB/EMTRI/TENOF (GENVOYA) TABLET (NF) PO SCH (22:19)
[2019-04-23] MEDS ORDERED: chlordiazePOXIDE HCL 10 MG CAPSULE PO PRN
[2019-04-23] MEDS: chlordiazePOXIDE HCL 10 MG CAPSULE PO SCH ×4 (06:15→22:14)
[2019-04-23] MEDS: GABAPENTIN 100 MG CAPSULE (FP) PO SCH ×3 (06:15→22:14)
[2019-04-23] MEDS: PRENATAL VITAMINS W/ FOLIC ACID TABLET (FP) PO SCH (09:50)
[2019-04-23] MEDS: LISINOPRIL 5 MG TABLET (FP) PO SCH (09:50)
--- NOTE | 2019-04-23 10:09 | PN ---
S CIWA - CIWA Score Nausea/Vomitin-No Nausea/No Vomiting Muscle Tremors: 3 Anxiety: 3 Agitation: 3 Paroxysmal Sweats: 2 Orientation: 0-Oriented Tacttile Disturbances: 0-None Auditory Disturbances: 0-None Visual Disturbances: 0-None Headache: 0-None Present CIWA-Ar Total Score: 11 S Progress Note (SOAP) Subjective: sweats agitation Objective: 04/23/19 10:08 Vital Signs Temperature 97.5 F L 04/23/19 06:21 Pulse Rate 59 L 04/23/19 06:21 Respiratory Rate 18 04/23/19 06:21 Blood Pressure 114/68 04/23/19 06:21 O2 Sat by Pulse Oximetry (%) Laboratory Tests 04/22/19 04/22/19 04/22/19 08:45 08:45 08:45 WBC 3.1 L RBC 3.82 L Hgb 12.6 Hct 37.0 MCV 96.8 H MCH 32.8 MCHC 33.9 RDW 13.2 Plt Count 144 D MPV 10.3 Sodium 141 Potassium 4.0 Chloride 109 H Carbon Dioxide 27 Anion Gap 5 L BUN 12.4 Creatinine 1.2 Est GFR (CKD-EPI)AfAm 78.43 Est GFR (CKD-EPI)NonAf 67.67 Random Glucose 120 H Calcium 8.8 Total Bilirubin 0.5 AST 27 ALT 24 Alkaline Phosphatase 56 Total Protein 6.4 Albumin 3.3 L RPR Titer Nonreactive labs noted aaox3 ambulating no acute distress Assessment: 04/23/19 10:09 withdrawal sx Plan: continue detox increase fluids
[2019-04-23] MEDS: ELVITEG/COB/EMTRI/TENOF (GENVOYA) TABLET (NF) PO SCH (22:14)
[2019-04-23] MEDS: MELATONIN 5 MG TABLETS PO PRN (22:14)
[2019-04-23] MEDS: THIAMINE HCL 100 MG TABLET (FP) PO SCH (22:14)
[2019-04-24] MEDS: chlordiazePOXIDE HCL 10 MG CAPSULE PO SCH ×2 (06:22→17:19)
[2019-04-24] MEDS: GABAPENTIN 100 MG CAPSULE (FP) PO SCH ×3 (06:23→21:23)
[2019-04-24] MEDS: LISINOPRIL 5 MG TABLET (FP) PO SCH (10:15)
[2019-04-24] MEDS: PRENATAL VITAMINS W/ FOLIC ACID TABLET (FP) PO SCH (10:15)
--- NOTE | 2019-04-24 12:01 | PN ---
S CIWA - CIWA Score Nausea/Vomitin Muscle Tremors: 3 Anxiety: 2 Agitation: 2 Paroxysmal Sweats: 2 Orientation: 0-Oriented Tacttile Disturbances: 1-Very Mild Itch/Numbness Auditory Disturbances: 0-None Visual Disturbances: 0-None Headache: 0-None Present CIWA-Ar Total Score: 12 BHS Progress Note (SOAP) Subjective: interrupted sleep, sweats, tremor , decreased appetite Objective: 04/24/19 11:59 Vital Signs Temp 97.9 F 04/24/19 09:24 Pulse 63 04/24/19 09:24 Resp 18 04/24/19 09:24 BP 107/60 04/24/19 09:24 Pulse Ox Intake & Output 04/23/19 04/23/19 04/24/19 11:59 23:59 11:59 Other: Voiding Method Toilet Toilet Laboratory Tests 04/22/19 04/22/19 04/22/19 08:45 08:45 08:45 WBC 3.1 L RBC 3.82 L Hgb 12.6 Hct 37.0 MCV 96.8 H MCH 32.8 MCHC 33.9 RDW 13.2 Plt Count 144 D MPV 10.3 Sodium 141 Potassium 4.0 Chloride 109 H Carbon Dioxide 27 Anion Gap 5 L BUN 12.4 Creatinine 1.2 Est GFR (CKD-EPI)AfAm 78.43 Est GFR (CKD-EPI)NonAf 67.67 Random Glucose 120 H Calcium 8.8 Total Bilirubin 0.5 AST 27 ALT 24 Alkaline Phosphatase 56 Total Protein 6.4 Albumin 3.3 L RPR Titer Nonreactive pt aox3 in nad lying in bed with mild tremor. Assessment: 04/24/19 12:00 withdrawal sx's leucopenia 04/24/19 12:00 Plan: continue detox increase fluids
[2019-04-24] MEDS: ELVITEG/COB/EMTRI/TENOF (GENVOYA) TABLET (NF) PO SCH (21:23)
[2019-04-24] MEDS: THIAMINE HCL 100 MG TABLET (FP) PO SCH (21:23)
[2019-04-24] MEDS: MELATONIN 5 MG TABLETS PO PRN (21:24)
[2019-04-25] MEDS ORDERED: chlordiazePOXIDE HCL 10 MG CAPSULE PO ONE (05:00)
[2019-04-25] MEDS: GABAPENTIN 100 MG CAPSULE (FP) PO SCH (05:58)
--- NOTE | 2019-04-25 08:58 | DS ---
[facility] Detox Discharge Summary Admission Date: 04/21/19 Discharge Date: 04/25/19 - History Present History: Alcohol Dependence, Cocaine Dependence - Physical Exam Results Vital Signs: Vital Signs Temperature 97.3 F L 04/25/19 08:25 Pulse Rate 60 04/25/19 08:25 Respiratory Rate 18 04/25/19 08:25 Blood Pressure 100/60 04/25/19 08:25 O2 Sat by Pulse Oximetry (%) Pertinent Admission Physical Exam Findings: pt arrived in withdrawals Laboratory Tests 04/22/19 04/22/19 04/22/19 08:45 08:45 08:45 WBC 3.1 L RBC 3.82 L Hgb 12.6 Hct 37.0 MCV 96.8 H MCH 32.8 MCHC 33.9 RDW 13.2 Plt Count 144 D MPV 10.3 Sodium 141 Potassium 4.0 Chloride 109 H Carbon Dioxide 27 Anion Gap 5 L BUN 12.4 Creatinine 1.2 Est GFR (CKD-EPI)AfAm 78.43 Est GFR (CKD-EPI)NonAf 67.67 Random Glucose 120 H Calcium 8.8 Total Bilirubin 0.5 AST 27 ALT 24 Alkaline Phosphatase 56 Total Protein 6.4 Albumin 3.3 L RPR Titer Nonreactive today pt is aaox3 ambulating no acute distress no s/s of withdrawals - Treatment Hospital Course: Detox Protocol Followed, Detoxed Safely, Responded well, Discharged Condition Good, Rehab Referral Accepted Patient has Accepted a Rehab Referral to: [facility] - Medication Discharge Medications: Ambulatory Orders Elviteg/Cob/Emtri/Tenof Alafen [Genvoya Tablet] 1 each PO HS 05/01/18 Ergocalciferol [Vitamin D2] 1 cap PO WEEKLY 05/01/18 Multivitamin [One Daily] 1 each PO DAILY 05/01/18 Lisinopril 5 mg PO DAILY #30 tablet 05/04/18 - Diagnosis (1) Alcohol dependence with uncomplicated withdrawal Current Visit: Yes Status: Chronic (2) Asthma Current Visit: Yes Status: Chronic Qualifiers: Asthma severity: mild Asthma persistence: intermittent Asthma complication type: with status asthmaticus Qualified Code(s): J45.22 - Mild intermittent asthma with status asthmaticus (3) Cocaine dependence Current Visit: Yes Status: Chronic Qualifiers: Substance use status: uncomplicated Qualified Code(s): F14.20 - Cocaine dependence, uncomplicated (4) GERD (gastroesophageal reflux disease) Current Visit: Yes Status: Chronic Qualifiers: Esophagitis presence: without esophagitis Qualified Code(s): K21.9 - Gastro -esophageal reflux disease without esophagitis (5) HIV (human immunodeficiency virus infection) Current Visit: Yes Status: Chronic Qualifiers: HIV symptom status: unspecified Qualified Code(s): B20 - Human immunodeficiency virus [HIV] disease (6) Neuropathy Current Visit: Yes Status: Chronic (7) Positive PPD Current Visit: Yes Status: Resolved (8) Acne Current Visit: No Status: Acute Qualifiers: Acne type: unspecified acne Qualified Code(s): L70.9 - Acne, unspecified (9) Insomnia Current Visit: No Status: Acute (10) Cardiomyopathy Current Visit: No Status: Chronic Qualifiers: Cardiomyopathy type: unspecified Qualified Code(s): I42.9 - Cardiomyopathy , unspecified - AMA Did Patient Leave Against Medical Advice: No
[2019-04-25 09:03] VITALS: BP 104/68; PULSE 61; TEMP 96.8
[2019-04-25] MEDS: LISINOPRIL 5 MG TABLET (FP) PO SCH (10:31)
[2019-04-25] MEDS: PRENATAL VITAMINS W/ FOLIC ACID TABLET (FP) PO SCH (10:31)
== END 2019-04-25 10:26 | disposition home or self-care (01) | DRG 774 ==
LOC: YASAS 19:42 → Y6N 04-21 01:38
PROVIDERS: ADMIT Allergy & Immunology; ATTEND Allergy & Immunology
PROC: HZ2ZZZZ Detoxification Services for Substance Abuse Treatment (ICD-10-PCS; principal; 2019-04-21)
DX: F10.230 Alcohol dependence with withdrawal, uncomplicated (principal); F14.20 Cocaine dependence, uncomplicated; Z21 Asymptomatic human immunodeficiency virus [HIV] infection status; G62.9 Polyneuropathy, unspecified; G47.00 Insomnia, unspecified; I42.9 Cardiomyopathy, unspecified; J45.20 Mild intermittent asthma, uncomplicated; K21.9 Gastro-esophageal reflux disease without esophagitis; L70.9 Acne, unspecified; R76.11 Nonspecific reaction to tuberculin skin test without active tuberculosis
CPT/HCPCS: 36415; 71046-TC-FY; 80053; 85027; 86593; 93005; 93010; Q2036

== ENCOUNTER 2019-10-08 12:30 | Inpatient (IN) | payer OTHER ==
--- NOTE | 2019-10-08 13:18 | BHS.RME ---
Substance Use & Tx History - Substance Use History Alcohol Substance amount: 48-72 oz beers + 1 pint vodka Frequency of use: Daily Substance route: Oral Date of Last Use: 10/08/19 Cocaine (Powder) Substance amount: $50-300 Frequency of use: Less than 3 times per week Substance route: Inhalation (ex: sniffing or snorting) Date of Last Use: 10/06/19 CIWA Nausea/Vomitin-Mild Nausea/No Vomiting Muscle Tremors: 2 Anxiety: 2 Agitation: 3 Paroxysmal Sweats: 5 Orientation: 1-Uncertain about Date Tacttile Disturbances: 0-None Auditory Disturbances: 0-None Visual Disturbances: 0-None Headache: 2-Mild CIWA-Ar Total Score: 16
--- NOTE | 2019-10-08 13:32 | HP ---
CIWA Score Nausea/Vomitin-Mild Nausea/No Vomiting Muscle Tremors: 2 Anxiety: 2 Agitation: 3 Paroxysmal Sweats: 5 Orientation: 1-Uncertain about Date Tacttile Disturbances: 0-None Auditory Disturbances: 0-None Visual Disturbances: 0-None Headache: 2-Mild CIWA-Ar Total Score: 16 - Admission Criteria OASAS Guidelines: Admission for Medically Managed Detox: Requires at least one of the followin. CIWA greater than 12 2. Seizures within the past 24 hours 3. Delirium tremens within the past 24 hours 4. Hallucinations within the past 24 hours 5. Acute intervention needed for co occurring medical disorder 6. Acute intervention needed for co occurring psychiatric disorder 7. Severe withdrawal that cannot be handled at a lower level of care (continued vomiting, continued diarrhea, abnormal vital signs) requiring intravenous medication and/or fluids 8. Admitting History and Physical - Admission Chief Complaint: " I failed again and I want to go to detox again." History of Present Illness: 54 year old male with history of alcohol dependence with withdrawal and cocaine use disorder. He was in [facility] from 04/21-04/25/20 completed detox and then relapsed right after being discharged because there was no rehab bed available. He relapsed immediately thereafter. Alcohol: 72-96 ouces of beer daily + 1 pint of vodka perhaps 3 times weekly in addition. He started at age 19 and last used 10/08/19 this morning. 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 Cocaine 2-3 times weekly from $50-300 per episode, intranasally started at age 29 and last used 10/06/19 PMH: Asthma, HIV disease was on Genvoya but last taken [address] Garg at [facility] Neuropathy Psurg: Left ear surger as a child, colonoscopy 6 years ago. Psych: None He is domiciled in the [place] but he has poor environment for recovery and meets criteria due to high risk for relapse and having acute episodes of blackouts frequently. History Source: Patient Limitations to Obtaining History: No Limitations - Past Medical History Pulmonary: Yes: Asthma Infectious Disease: Yes: HIV - Past Surgical History Additional Past Surgical History: Left ear surgery as a child - Advance Directives Advance Directives: No: Living Will, Health Care Proxy - Smoking History Smoking history: Never smoked Have you smoked in the past 12 months: No - Alcohol/Substance Use Hx Alcohol Use: Yes History of Substance Use: reports: Cocaine Date of Last Use: 10/08/19 - Social History Usual Living Arrangement: Yes: Alone Do you think of yourself as: Spear, Lesbian or Homosexual ADL: Independent 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 History of Recent Travel: No Admission ROS [facility] - [facility] Allergies/Adverse Reactions: Allergies Allergy/AdvReac Type Severity Reaction Status Date / Time No Known Allergies Allergy Verified 04/20/19 23:20 Exam Limitations: No Limitations - Ebola screening Have you traveled outside of the country in the last 21 days: No Have you had contact with anyone from an Ebola affected area: No Have you been sick,other than usual withdrawal symptoms: No Do you have a fever: No - Review of Systems Constitutional: Chills, Diaphoresis EENT: reports: No Symptoms Reported Respiratory: reports: No Symptoms reported Cardiac: reports: No Symptoms Reported GI: reports: Nausea, Abdominal cramping : reports: No Symptoms Reported Musculoskeletal: reports: No Symptoms Reported Integumentary: reports: No Symptoms Reported Neuro: reports: Headache Endocrine: reports: No Symptoms Reported Hematology: reports: No Symptoms Reported Psychiatric: reports: Judgement Intact, Agitated, Anxious Other Systems: Reviewed and Negative Patient History - Patient Medical History Hx Anemia: No Hx Asthma: Yes (Albuterol) Hx Chronic Obstructive Pulmonary Disease (COPD): No Hx Cancer: No Hx Cardiac Disorders: Yes (cardiomyopathy) Hx Congestive Heart Failure: No Hx Hypertension: No Hx Hypercholesterolemia: No Hx Pacemaker: No HX Cerebrovascular Accident: No Hx Seizures: No Hx Dementia: No Hx Diabetes: No Hx Gastrointestinal Disorders: No Hx Liver Disease: No Hx Genitourinary Disorders: No Hx Sexually Transmitted Disorders: No Hx Renal Disease (ESRD): No Hx Thyroid Disease: No Hx Human Immunodeficiency Virus (HIV): Yes (since ) Hx Hepatitis C: No Hx Depression: No Hx Suicide Attempt: No Hx Bipolar Disorder: No Hx Schizophrenia: No - Patient Surgical History Past Surgical History: No Hx Neurologic Surgery: No Hx Cataract Extraction: No Hx Cardiac Surgery: No Hx Lung Surgery: No Hx Breast Surgery: No Hx Breast Biopsy: No Hx Abdominal Surgery: No Hx Appendectomy: No Hx Cholecystectomy: No Hx Genitourinary Surgery: No Hx Section: No Hx Orthopedic Surgery: No Other Surgical History: L ear sx as a child., colonoscopy 5 years ago Anesthesia Reaction: No - PPD History Previous Implant?: Yes Documented Results: Positive w/proof Implanted On Prior R Admission?: Yes Results: CXR negative PPD to be Administered?: No - Smoking Cessation Smoking history: Never smoked Have you smoked in the past 12 months: No Hx Chewing Tobacco Use: No Initiated information on smoking cessation: No - Substances abused Alcohol Substance route: Oral Frequency: Daily Amount used: 72-96 oz plus 1 pint vodka Age of first use: 19 Date of last use: 10/08/19 Crack Substance route: Inhalation Frequency: 3-6 times per week Amount used: $50-300 Age of first use: 29 Date of last use: 10/06/19 Admission Physical Exam BHS - Physical General Appearance: Yes: Mild Distress, Tremorous, Irritable, Sweating, Anxious HEENTM: Yes: EOMI, Hearing grossly Normal, Normal ENT Inspection, Normocephalic, Normal Voice, RASHAWN, Pharynx Normal, Tm's normal Respiratory: Yes: Chest Non-Tender, Lungs Clear, Normal Breath Sounds, No Respiratory Distress, No Accessory Muscle Use Neck: Yes: No masses,lesions,Nodules, Supple, Trachea in good position Breast: Yes: Within Normal Limits Cardiology: Yes: Regular Rhythm, S1, S2, Tachycardia Abdominal: Yes: Normal Bowel Sounds, Non Tender, Soft, Protuberent Genitourinary: Yes: Within Normal Limits Back: Yes: Within Normal Limits Musculoskeletal: Yes: full range of Motion, Gait Steady, Pelvis Stable Extremities: Yes: Normal Capillary Refill, Normal Inspection, Normal Range of Motion, Non-Tender Neurological: Yes: motor 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-XII NML intact, Fully Oriented, Alert, Motor Strength 5/5, Normal Mood/Affect, Normal Response Integumentary: Yes: Normal Color, Dry, Warm Lymphatic: Yes: Within Normal Limits - Diagnostic (1) Alcohol dependence with uncomplicated withdrawal Current Visit: No Status: Chronic (2) Asthma Current Visit: No Status: Chronic Qualifiers: Asthma severity: mild Asthma persistence: intermittent Asthma complication type: with status asthmaticus Qualified Code(s): J45.22 - Mild intermittent asthma with status asthmaticus (3) Cocaine dependence Current Visit: No Status: Chronic Qualifiers: Substance use status: uncomplicated Qualified Code(s): F14.20 - Cocaine de pendence, uncomplicated (4) GERD (gastroesophageal reflux disease) Current Visit: No Status: Chronic Qualifiers: Esophagitis presence: without esophagitis Qualified Code(s): K21.9 - Gastro-esophageal reflux disease without esophagitis (5) HIV (human immunodeficiency virus infection) Current Visit: No Status: Chronic Qualifiers: HIV symptom status: unspecified Qualified Code(s): B20 - Human immunodeficiency virus [HIV] disease (6) Neuropathy Current Visit: No Status: Chronic (7) Positive PPD Current Visit: No Status: Resolved Cleared for Admission S - Detox or Rehab [facility] Level of Care: Medically Managed Detox Regimen/Protocol: Librium Claeared for Rehab Admission: No Screened but not Admitted - Documentation of Visit Screened but not Admitted: No Breathalyzer - Breathalyzer Breathalyzer: 0.058 Urine Drug Screen - Test Device Lot number: [id number] Expiration date: 12/12/20 - Control Is test valid?: Yes - Results Drug screen NEGATIVE: No Urine drug screen results: TALI-Cocaine, MET-Methamphetamine Inpatient Rehab Admission - Rehab Decision to Admit Inpatient rehab admission?: No
[2019-10-08] MEDS ORDERED: MAGNESIUM CITRATE 300 ML BOTTLE PO PRN (13:39)
[2019-10-08] MEDS ORDERED: METHOCARBAMOL 500 MG TABLET PO PRN (13:39)
[2019-10-08] MEDS ORDERED: IBUPROFEN 400 MG TABLET (FP) PO PRN (13:39)
[2019-10-08] MEDS ORDERED: chlordiazePOXIDE HCL 25 MG CAPSULE PO PRN (13:39)
[2019-10-08] MEDS ORDERED: ACETAMINOPHEN 325 MG TABLET (FP) PO PRN ×2 (13:39)
[2019-10-08] MEDS ORDERED: NICOTINE POLACRILEX 2 MG GUM BUC PRN (13:39)
[2019-10-08] MEDS ORDERED: BISMUTH SUBSALICYLATE 524 MG/30 ML UD PO PRN (13:39)
[2019-10-08] MEDS ORDERED: MAGNESIUM HYDROX 2400MG/30ML ORAL SUSPENSION 30 ML CUP PO PRN (13:39)
[2019-10-08] MEDS ORDERED: MENTHOL/PHENOL 1 EACH UD MM PRN (13:39)
[2019-10-08 13:50] VITALS: BMI 25.2
[2019-10-08 14:43] LABS: HEMATOCRIT 45.1 % (35.4-49); HEMOGLOBIN 15.1 GM/dL (11.7-16.9); MCH 30.9 pg (25.7-33.7); MCHC 33.5 g/dl (32.0-35.9); MEAN CELL VOLUME 92.1 fl (80-96); PLATELET COUNT 160 K/MM3 (134-434); RBC 4.89 M/mm3 (4.00-5.60); RDW 13.9 % (11.9-15.9); WHITE BLOOD COUNT 4.1 K/mm3 (4.0-10.0)
[2019-10-08] MEDS: hydrOXYzine PAMOATE 25 MG CAPSULE (FP) PO SCH ×3 (14:57→22:12)
[2019-10-08] MEDS: PRENATAL VITAMINS W/ FOLIC ACID TABLET (FP) PO SCH (14:57)
[2019-10-08] MEDS: NICOTINE 7 MG/24 HOURS TOPICAL PATCH TD SCH (14:59)
[2019-10-08] MEDS ORDERED: ONDANSETRON *ODT* 4 MG TABLET SL ONE (15:00)
[2019-10-08 15:10] LABS: BILIRUBIN,TOTAL 0.6 mg/dL (0.2-1); BLOOD UREA NITROGEN 10.9 mg/dL (7-18); CALCIUM 9.3 mg/dL (8.5-10.1); CREATININE 1.1 mg/dL (0.55-1.3); POTASSIUM 4.2 mmol/L (3.5-5.1); TOT PROT 8.1 g/dl (6.4-8.2)
[2019-10-08] MEDS: PATIENT'S OWN MEDICATION (NON-FORMULARY) (Propylene Glycol/Peg 400/Pf [Systane 0.3-0.4% Ey OS SCH ×3 (15:44→22:11)
[2019-10-08] MEDS: chlordiazePOXIDE HCL 25 MG CAPSULE PO SCH ×2 (17:24→22:12)
[2019-10-08] MEDS: MELATONIN 5 MG TABLETS PO SCH (22:12)
[2019-10-08] MEDS: THIAMINE HCL 100 MG TABLET (FP) PO SCH (22:12)
[2019-10-09] MEDS: MAG HYDROX/AL HYDROX/SIMETH 30 ML UNIT-DOSE CUP PO PRN (00:11)
[2019-10-09] MEDS: hydrOXYzine PAMOATE 25 MG CAPSULE (FP) PO SCH ×5 (06:34→22:04)
[2019-10-09] MEDS: chlordiazePOXIDE HCL 25 MG CAPSULE PO SCH ×4 (06:34→22:04)
--- NOTE | 2019-10-09 08:48 | PN ---
[facility] CIWA - CIWA Score Nausea/Vomitin-Mild Nausea/No Vomiting Muscle Tremors: 1-None Visible, but [place] Anxiety: 1-Mildly Anxious Agitation: 0-Normal Activity Paroxysmal Sweats: No Perspiration Orientation: 0-Oriented Tacttile Disturbances: 0-None Auditory Disturbances: 1-Very Mild Visual Disturbances: 1-Very Mild Sensitivity Headache: 0-None Present CIWA-Ar Total Score: 5 BHS Progress Note (SOAP) Subjective: Pt states he has nausea and fatigue which caused him to refuse am meds. Asking for Lyrica Objective: 10/09/19 08:47 Laboratory Tests 10/08/19 10/08/19 10/08/19 14:00 14:00 14:00 WBC 4.1 RBC 4.89 Hgb 15.1 Hct 45.1 D MCV 92.1 MCH 30.9 MCHC 33.5 RDW 13.9 Plt Count 160 MPV 10.0 Sodium 141 Potassium 4.2 Chloride 109 H Carbon Dioxide 22 Anion Gap 10 BUN 10.9 Creatinine 1.1 Est GFR (CKD-EPI)AfAm 87.13 Est GFR (CKD-EPI)NonAf 75.17 Random Glucose 95 Calcium 9.3 Total Bilirubin 0.6 AST 31 ALT 30 Alkaline Phosphatase 79 Total Protein 8.1 Albumin 4.0 Syphilis Serology Non-reactive Vital Signs - 24 hr 10/08/19 10/08/19 10/08/19 13:29 14:11 14:56 Temperature 97.2 F L 97.2 F L 98.1 F Pulse Rate 84 84 70 Respiratory 18 18 18 Rate Blood Pressure 134/81 134/81 123/75 O2 Sat by Pulse Oximetry (%) 10/08/19 10/08/19 10/08/19 14:57 16:36 20:31 Temperature 96.5 F L 98.2 F Pulse Rate 69 100 H Respiratory 18 16 Rate Blood Pressure 118/75 108/69 O2 Sat by Pulse 100 100 Oximetry (%) 10/09/19 10/09/19 10/09/19 00:58 03:30 05:31 Temperature 97.2 F L Pulse Rate 57 L Respiratory 18 16 18 Rate Blood Pressure 78/53 L O2 Sat by Pulse 100 Oximetry (%) PE Gnl: WDWN, in no distress, in bed Mental status: normal Motor: no tremor Assessment: 10/09/19 08:49 1. Alcohol use disorder 2. Cocaine use disorder 3. HIV, noncomplaint with medication 4. Asthma 5. Neuropathy, ? etiology ? HIV related, on Lyrica at home 6. GI upset, fatigue, likely related to withdrawal Plan: 1. continue Librium withdrawal protocol 2. encouraged pt to take meds as prescribed, ask for prn for GI upset 3. will add low dose gabapentin rather that restarting Lyrica
--- NOTE | 2019-10-09 09:10 | PN ---
BHS Progress Note Note: Pt states that gabapentin ineffective in past due to high doses required which caused dizziness. Will write for low dose Cymbalta.
[2019-10-09] MEDS: PRENATAL VITAMINS W/ FOLIC ACID TABLET (FP) PO SCH (10:13)
[2019-10-09] MEDS: DULoxetine HCL 20 MG CAPSULE.DR PO SCH (10:13)
[2019-10-09] MEDS: NICOTINE 7 MG/24 HOURS TOPICAL PATCH TD SCH (10:14)
[2019-10-09] MEDS: PATIENT'S OWN MEDICATION (NON-FORMULARY) (Propylene Glycol/Peg 400/Pf [Systane 0.3-0.4% Ey OS SCH ×4 (10:14→22:04)
[2019-10-09] MEDS ORDERED: GABAPENTIN 100 MG CAPSULE PO SCH (14:00)
[2019-10-09] MEDS: THIAMINE HCL 100 MG TABLET (FP) PO SCH (22:04)
[2019-10-09] MEDS: MELATONIN 5 MG TABLETS PO SCH (22:04)
[2019-10-10] MEDS: chlordiazePOXIDE HCL 25 MG CAPSULE PO SCH ×4 (06:19→22:09)
[2019-10-10] MEDS: hydrOXYzine PAMOATE 25 MG CAPSULE (FP) PO SCH ×5 (06:19→22:08)
--- NOTE | 2019-10-10 10:14 | PN ---
S CIWA - CIWA Score Nausea/Vomitin-Mild Nausea/No Vomiting Muscle Tremors: 2 Anxiety: 1-Mildly Anxious Agitation: 1-Slight > Activity Paroxysmal Sweats: No Perspiration Orientation: 0-Oriented Tacttile Disturbances: 0-None Auditory Disturbances: 0-None Visual Disturbances: 0-None Headache: 0-None Present CIWA-Ar Total Score: 5 BHS Progress Note (SOAP) Subjective: pt admitted for detox from alcohol O: Vital Signs - 24 hr 10/09/19 10/09/19 10/09/19 13:10 16:41 20:35 Temperature 97.8 F 98.4 F 97.8 F Pulse Rate 80 67 63 Respiratory 18 18 18 Rate Blood Pressure 98/60 116/83 91/58 L O2 Sat by Pulse 99 99 Oximetry (%) 10/09/19 10/10/19 10/10/19 22:03 00:39 03:37 Temperature 97.9 F Pulse Rate 67 Respiratory 18 18 18 Rate Blood Pressure 119/75 O2 Sat by Pulse Oximetry (%) 10/10/19 10/10/19 06:15 08:38 Temperature 97 F L 97.0 F L Pulse Rate 59 L 65 Respiratory 16 18 Rate Blood Pressure 108/63 103/65 O2 Sat by Pulse 96 Oximetry (%) Laboratory Tests 10/08/19 10/08/19 10/08/19 14:00 14:00 14:00 WBC 4.1 RBC 4.89 Hgb 15.1 Hct 45.1 D MCV 92.1 MCH 30.9 MCHC 33.5 RDW 13.9 Plt Count 160 MPV 10.0 Sodium 141 Potassium 4.2 Chloride 109 H Carbon Dioxide 22 Anion Gap 10 BUN 10.9 Creatinine 1.1 Est GFR (CKD-EPI)AfAm 87.13 Est GFR (CKD-EPI)NonAf 75.17 Random Glucose 95 Calcium 9.3 Total Bilirubin 0.6 AST 31 ALT 30 Alkaline Phosphatase 79 Total Protein 8.1 Albumin 4.0 Syphilis Serology Non-reactive a/p: AUD- continue detox protocol pt to f/u Dr. Braswell for HIV treatmetn- pt has not taking meds for several weeks
[2019-10-10] MEDS: PRENATAL VITAMINS W/ FOLIC ACID TABLET (FP) PO SCH (10:19)
[2019-10-10] MEDS: DULoxetine HCL 20 MG CAPSULE.DR PO SCH (10:19)
[2019-10-10] MEDS: NICOTINE 7 MG/24 HOURS TOPICAL PATCH TD SCH (10:21)
[2019-10-10] MEDS: PATIENT'S OWN MEDICATION (NON-FORMULARY) (Propylene Glycol/Peg 400/Pf [Systane 0.3-0.4% Ey OS SCH ×4 (10:21→22:08)
[2019-10-10] MEDS: MELATONIN 5 MG TABLETS PO SCH (22:08)
[2019-10-10] MEDS: THIAMINE HCL 100 MG TABLET (FP) PO SCH (22:09)
[2019-10-11] MEDS ORDERED: chlordiazePOXIDE HCL 10 MG CAPSULE PO PRN
[2019-10-11] MEDS: chlordiazePOXIDE HCL 10 MG CAPSULE PO SCH ×4 (06:41→22:23)
[2019-10-11] MEDS: hydrOXYzine PAMOATE 25 MG CAPSULE (FP) PO SCH ×5 (07:00→22:23)
[2019-10-11] MEDS: PRENATAL VITAMINS W/ FOLIC ACID TABLET (FP) PO SCH (09:42)
[2019-10-11] MEDS: DULoxetine HCL 20 MG CAPSULE.DR PO SCH (09:42)
[2019-10-11] MEDS: PATIENT'S OWN MEDICATION (NON-FORMULARY) (Propylene Glycol/Peg 400/Pf [Systane 0.3-0.4% Ey OS SCH ×4 (09:43→22:23)
[2019-10-11] MEDS: NICOTINE 7 MG/24 HOURS TOPICAL PATCH TD SCH (09:43)
--- NOTE | 2019-10-11 10:57 | PN ---
[facility] CIWA - CIWA Score Nausea/Vomitin-No Nausea/No Vomiting Muscle Tremors: 1-None Visible, but [place] Anxiety: 1-Mildly Anxious Agitation: 0-Normal Activity Paroxysmal Sweats: No Perspiration Orientation: 0-Oriented Tacttile Disturbances: 0-None Auditory Disturbances: 0-None Visual Disturbances: 1-Very Mild Sensitivity Headache: 0-None Present CIWA-Ar Total Score: 3 BHS Progress Note (SOAP) Subjective: 54 years old male admitted on 10/08/19 for alcohol withdrawal sx management treating with librium detox regiment history of hiv not on ARV Objective: 10/11/19 10:57 Vital Signs Temperature 97.5 F L 10/11/19 08:53 Pulse Rate 65 10/11/19 08:53 Respiratory Rate 18 10/11/19 08:53 Blood Pressure 105/65 10/11/19 08:53 O2 Sat by Pulse Oximetry (%) 100 10/11/19 05:58 Laboratory Last Values WBC 4.1 K/mm3 (4.0-10.0) 10/08/19 14:00 RBC 4.89 M/mm3 (4.00-5.60) 10/08/19 14:00 Hgb 15.1 GM/dL (11.7-16.9) 10/08/19 14:00 Hct 45.1 % (35.4-49) D 10/08/19 14:00 MCV 92.1 fl (80-96) 10/08/19 14:00 MCH 30.9 pg (25.7-33.7) 10/08/19 14:00 MCHC 33.5 g/dl (32.0-35.9) 10/08/19 14:00 RDW 13.9 % (11.9-15.9) 10/08/19 14:00 Plt Count 160 K/MM3 (134-434) 10/08/19 14:00 MPV 10.0 fl (7.5-11.1) 10/08/19 14:00 Sodium 141 mmol/L (136-145) 10/08/19 14:00 Potassium 4.2 mmol/L (3.5-5.1) 10/08/19 14:00 Chloride 109 mmol/L (98-107) H 10/08/19 14:00 Carbon Dioxide 22 mmol/L (21-32) 10/08/19 14:00 Anion Gap 10 MMOL/L (8-16) 10/08/19 14:00 BUN 10.9 mg/dL (7-18) 10/08/19 14:00 Creatinine 1.1 mg/dL (0.55-1.3) 10/08/19 14:00 Est GFR (CKD-EPI)AfAm 87.13 10/08/19 14:00 Est GFR (CKD-EPI)NonAf 75.17 10/08/19 14:00 Random Glucose 95 mg/dL (74-106) 10/08/19 14:00 Calcium 9.3 mg/dL (8.5-10.1) 10/08/19 14:00 Total Bilirubin 0.6 mg/dL (0.2-1) 10/08/19 14:00 AST 31 U/L (15-37) 10/08/19 14:00 ALT 30 U/L (13-61) 10/08/19 14:00 Alkaline Phosphatase 79 U/L (45-117) 10/08/19 14:00 Total Protein 8.1 g/dl (6.4-8.2) 10/08/19 14:00 Albumin 4.0 g/dl (3.4-5.0) 10/08/19 14:00 Syphilis Serology Non-reactive (NONREACTIVE) 10/08/19 14:00 lab noted Assessment: 10/11/19 10:57 alcohol withdrawal Plan: librium regiment
[2019-10-11] MEDS: MELATONIN 5 MG TABLETS PO SCH (22:22)
[2019-10-11] MEDS: THIAMINE HCL 100 MG TABLET (FP) PO SCH (22:23)
[2019-10-11] MEDS: MAG HYDROX/AL HYDROX/SIMETH 30 ML UNIT-DOSE CUP PO PRN (22:32)
[2019-10-12] MEDS: chlordiazePOXIDE HCL 10 MG CAPSULE PO SCH ×2 (05:27→17:51)
[2019-10-12] MEDS: hydrOXYzine PAMOATE 25 MG CAPSULE (FP) PO SCH ×5 (05:27→22:08)
--- NOTE | 2019-10-12 09:23 | PN ---
[facility] CIWA - CIWA Score Nausea/Vomitin-No Nausea/No Vomiting Muscle Tremors: None Anxiety: 1-Mildly Anxious Agitation: 0-Normal Activity Paroxysmal Sweats: No Perspiration Orientation: 0-Oriented Tacttile Disturbances: 0-None Auditory Disturbances: 0-None Visual Disturbances: 0-None Headache: 0-None Present CIWA-Ar Total Score: 1 BHS Progress Note (SOAP) Subjective: feeling better little anxious sweats Objective: 10/12/19 09:22 Vital Signs Temperature 97.3 F L 10/12/19 08:32 Pulse Rate 72 10/12/19 08:32 Respiratory Rate 18 10/12/19 08:32 Blood Pressure 105/72 10/12/19 08:32 O2 Sat by Pulse Oximetry (%) 99 10/12/19 06:20 aaox3 ambulating no acute distress Assessment: 10/12/19 09:23 mild withdrawals Plan: continue detox d/c in am
[2019-10-12] MEDS: DULoxetine HCL 20 MG CAPSULE.DR PO SCH (10:04)
[2019-10-12] MEDS: NICOTINE 7 MG/24 HOURS TOPICAL PATCH TD SCH (10:04)
[2019-10-12] MEDS: PATIENT'S OWN MEDICATION (NON-FORMULARY) (Propylene Glycol/Peg 400/Pf [Systane 0.3-0.4% Ey OS SCH ×4 (10:04→22:09)
[2019-10-12] MEDS: PRENATAL VITAMINS W/ FOLIC ACID TABLET (FP) PO SCH (10:04)
[2019-10-12] MEDS: MELATONIN 5 MG TABLETS PO SCH (22:08)
[2019-10-12] MEDS: THIAMINE HCL 100 MG TABLET (FP) PO SCH (22:08)
[2019-10-13] MEDS ORDERED: chlordiazePOXIDE HCL 10 MG CAPSULE PO ONE (05:00)
[2019-10-13] MEDS: hydrOXYzine PAMOATE 25 MG CAPSULE (FP) PO SCH ×2 (05:31→10:11)
--- NOTE | 2019-10-13 08:38 | PN ---
[facility] CIWA - CIWA Score Nausea/Vomitin-No Nausea/No Vomiting Muscle Tremors: None Anxiety: 1-Mildly Anxious Agitation: 0-Normal Activity Paroxysmal Sweats: No Perspiration Orientation: 0-Oriented Tacttile Disturbances: 0-None Auditory Disturbances: 0-None Visual Disturbances: 0-None Headache: 0-None Present CIWA-Ar Total Score: 1 S Progress Note (SOAP) Subjective: alert,no complaint Objective: 10/13/19 08:37 Vital Signs Temperature 97.0 F L 10/13/19 06:17 Pulse Rate 57 L 10/13/19 06:17 Respiratory Rate 18 10/13/19 06:17 Blood Pressure 100/62 10/13/19 06:17 O2 Sat by Pulse Oximetry (%) 100 10/13/19 06:17 Assessment: 10/13/19 08:37 detox completed,no withdrawal symptom Plan: stable for discharge today,[facility]
--- NOTE | 2019-10-13 08:42 | DS ---
[facility] Detox Discharge Summary Admission Date: 10/08/19 Discharge Date: 10/13/19 - History Present History: Alcohol Dependence, Cocaine Dependence Additional Comments: alert,oriented x 3 ambulation on the unit no abdominal pain no swelling of the leg stable for discharge to [facility] rehab for further level of care total time spending on discharge 35 mins Pertinent Past History: gerd neuropathy positive ppd hiv - Physical Exam Results Vital Signs: Vital Signs Temperature 97.0 F L 10/13/19 06:17 Pulse Rate 57 L 10/13/19 06:17 Respiratory Rate 18 10/13/19 06:17 Blood Pressure 100/62 10/13/19 06:17 O2 Sat by Pulse Oximetry (%) 100 10/13/19 06:17 Pertinent Admission Physical Exam Findings: withdrawal signs and symptom Vital Signs Temperature 97.0 F L 10/13/19 06:17 Pulse Rate 57 L 10/13/19 06:17 Respiratory Rate 18 10/13/19 06:17 Blood Pressure 100/62 10/13/19 06:17 O2 Sat by Pulse Oximetry (%) 100 10/13/19 06:17 Laboratory Last Values WBC 4.1 K/mm3 (4.0-10.0) 10/08/19 14:00 RBC 4.89 M/mm3 (4.00-5.60) 10/08/19 14:00 Hgb 15.1 GM/dL (11.7-16.9) 10/08/19 14:00 Hct 45.1 % (35.4-49) D 10/08/19 14:00 MCV 92.1 fl (80-96) 10/08/19 14:00 MCH 30.9 pg (25.7-33.7) 10/08/19 14:00 MCHC 33.5 g/dl (32.0-35.9) 10/08/19 14:00 RDW 13.9 % (11.9-15.9) 10/08/19 14:00 Plt Count 160 K/MM3 (134-434) 10/08/19 14:00 MPV 10.0 fl (7.5-11.1) 10/08/19 14:00 Sodium 141 mmol/L (136-145) 10/08/19 14:00 Potassium 4.2 mmol/L (3.5-5.1) 10/08/19 14:00 Chloride 109 mmol/L (98-107) H 10/08/19 14:00 Carbon Dioxide 22 mmol/L (21-32) 10/08/19 14:00 Anion Gap 10 MMOL/L (8-16) 10/08/19 14:00 BUN 10.9 mg/dL (7-18) 10/08/19 14:00 Creatinine 1.1 mg/dL (0.55-1.3) 10/08/19 14:00 Est GFR (CKD-EPI)AfAm 87.13 10/08/19 14:00 Est GFR (CKD-EPI)NonAf 75.17 10/08/19 14:00 Random Glucose 95 mg/dL (74-106) 10/08/19 14:00 Calcium 9.3 mg/dL (8.5-10.1) 10/08/19 14:00 Total Bilirubin 0.6 mg/dL (0.2-1) 10/08/19 14:00 AST 31 U/L (15-37) 10/08/19 14:00 ALT 30 U/L (13-61) 10/08/19 14:00 Alkaline Phosphatase 79 U/L (45-117) 10/08/19 14:00 Total Protein 8.1 g/dl (6.4-8.2) 10/08/19 14:00 Albumin 4.0 g/dl (3.4-5.0) 10/08/19 14:00 Syphilis Serology Non-reactive (NONREACTIVE) 10/08/19 14:00 - Treatment Hospital Course: Detox Protocol Followed, Detoxed Safely, Responded well, Rehab Referral Accepted Patient has Accepted a Rehab Referral to: [facility] - Medication Discharge Medications: Ambulatory Orders Multivitamin [One Daily] 1 each OS QID 05/01/18 Pregabalin [Lyrica] 150 mg PO TID PRN MDD 450 10/08/19 Propylene Glycol/Peg 400/Pf [Systane 0.3-0.4% Eye Drop] 1 drop OS QID 10/08/19 - Diagnosis (1) Alcohol dependence with uncomplicated withdrawal Current Visit: No Status: Chronic (2) Cocaine dependence Current Visit: No Status: Chronic Qualifiers: Substance use status: uncomplicated Qualified Code(s): F14.20 - Cocaine dependence, uncomplicated (3) GERD (gastroesophageal reflux disease) Current Visit: No Status: Chronic Qualifiers: Esophagitis presence: without esophagitis Qualified Code(s): K21.9 - Gastro-esophageal reflux disease without esophagitis (4) HIV (human immunodeficiency virus infection) Current Visit: No Status: Chronic Qualifiers: HIV symptom status: unspecified Qualified Code(s): B20 - Human immunodefici ency virus [HIV] disease (5) Neuropathy Current Visit: No Status: Chronic (6) Positive PPD Current Visit: No Status: Resolved - AMA Did Patient Leave Against Medical Advice: No
[2019-10-13 09:12] VITALS: BP 119/72; PULSE 81; TEMP 98.3
[2019-10-13] MEDS: NICOTINE 7 MG/24 HOURS TOPICAL PATCH TD SCH (10:08)
[2019-10-13] MEDS: PRENATAL VITAMINS W/ FOLIC ACID TABLET (FP) PO SCH (10:08)
[2019-10-13] MEDS: DULoxetine HCL 20 MG CAPSULE.DR PO SCH (10:08)
[2019-10-13] MEDS: PATIENT'S OWN MEDICATION (NON-FORMULARY) (Propylene Glycol/Peg 400/Pf [Systane 0.3-0.4% Ey OS SCH (10:09)
== END 2019-10-13 13:20 | disposition other institution (70) | DRG 774 ==
LOC: YASAS 12:30 → Y3N 13:51
PROVIDERS: ADMIT Allergy & Immunology; ATTEND Allergy & Immunology
PROC: HZ2ZZZZ Detoxification Services for Substance Abuse Treatment (ICD-10-PCS; principal; 2019-10-08)
DX: F10.230 Alcohol dependence with withdrawal, uncomplicated (principal); F14.20 Cocaine dependence, uncomplicated; Z21 Asymptomatic human immunodeficiency virus [HIV] infection status; G62.9 Polyneuropathy, unspecified; J45.22 Mild intermittent asthma with status asthmaticus; I42.9 Cardiomyopathy, unspecified; K21.9 Gastro-esophageal reflux disease without esophagitis; R76.11 Nonspecific reaction to tuberculin skin test without active tuberculosis
CPT/HCPCS: 36415; 80053; 85027; 86780; Q0162

== ENCOUNTER 2020-02-04 11:47 | Inpatient (IN) | payer OTHER ==
--- NOTE | 2020-02-04 12:01 | BHS.RME ---
Substance Use & Tx History - Substance Use History Alcohol Substance amount: 100 ounces of beer Frequency of use: Daily Substance route: Oral Date of Last Use: 02/04/20 (First use age 19 y. No seizures. Blackouts, last was this week. 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) Cocaine- Powder Substance amount: $50 to $300 per month Frequency of use: Less than 3 times per week Substance route: Inhalation (ex: sniffing or snorting) Date of Last Use: 02/03/20 (First use age 29 y) - Last Treatment Date of last treatment: 10/07 to 10/13/19 Treatment type: Substance Use Disorder (JUANA) Where was last treatment: Detox Physical/Psych/Mental Status - Behavior General Behavior: Increased activity (restlessness, agitation) Eye Contact: Normal - Cooperativeness Cooperativeness: Cooperative - Thinking Thought Processes: Tight Thought content: Future oriented - Physical Health Problems Is patient presently having any pain?: No Does patient presently have any injuries (include location): No Does patient currently have a fever: No CIWA Nausea/Vomitin-Mild Nausea/No Vomiting Muscle Tremors: None Anxiety: 2 Agitation: 0-Normal Activity Paroxysmal Sweats: 4-Forehead w/Sweat Beads Orientation: 0-Oriented Tacttile Disturbances: 1-Very Mild Itch/Numbness Auditory Disturbances: 2-Mild Harshness/Frighten Visual Disturbances: 2-Mild Sensitivity Headache: 2-Mild CIWA-Ar Total Score: 14
--- NOTE | 2020-02-04 12:52 | HP ---
CIWA Score Nausea/Vomitin-Mild Nausea/No Vomiting Muscle Tremors: None Anxiety: 2 Agitation: 0-Normal Activity Paroxysmal Sweats: 4-Forehead w/Sweat Beads Orientation: 0-Oriented Tacttile Disturbances: 1-Very Mild Itch/Numbness Auditory Disturbances: 2-Mild Harshness/Frighten Visual Disturbances: 2-Mild Sensitivity Headache: 2-Mild CIWA-Ar Total Score: 14 - Admission Criteria OASAS Guidelines: Admission for Medically Managed Detox: Requires at least one of the followin. CIWA greater than 12 2. Seizures within the past 24 hours 3. Delirium tremens within the past 24 hours 4. Hallucinations within the past 24 hours 5. Acute intervention needed for co occurring medical disorder 6. Acute intervention needed for co occurring psychiatric disorder 7. Severe withdrawal that cannot be handled at a lower level of care (continued vomiting, continued diarrhea, abnormal vital signs) requiring intravenous medication and/or fluids 8. Admitting History and Physical - Admission Chief Complaint: "I want to stop using drugs." History of Present Illness: 54 year old male with history of alcohol dependence with alcohol withdrawal, cocaine use disorder, nicotine dependence. Alcohol: 6 pints of vodka , started at age 19 and last used today. he does not admit to seizures, has had blackouts this week, and endorses an eye student outreach coordinator daily. Cocaine: $50 - 300 daily, 2-3 times per month, started at age 29 and last used 02/03/20. Nicotine: never done PMH; Asthma, HIV disease, Neuropathy Psurg: Left ear as a child Psych: None He is domiciled in the [place], no legal issues BELINDA: 0.199 CIWA=14 History Source: Patient Limitations to Obtaining History: No Limitations - Past Medical History Pulmonary: Yes: Asthma Infectious Disease: Yes: HIV - Past Surgical History Past Surgical History: Yes: None - Smoking History Smoking history: Never smoked Have you smoked in the past 12 months: No - Alcohol/Substance Use Hx Alcohol Use: Yes History of Substance Use: reports: Cocaine Date of Last Use: 10/08/19 - Social History Usual Living Arrangement: Yes: Alone Do you think of yourself as: Declined to answer ADL: Independent 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 Allergies/Adverse Reactions: Allergies Allergy/AdvReac Type Severity Reaction Status Date / Time No Known Allergies Allergy Verified 10/08/19 13:55 Exam Limitations: No Limitations - Ebola screening Have you traveled outside of the country in the last 21 days: No Have you had contact with anyone from an Ebola affected area: No Have you been sick,other than usual withdrawal symptoms: No Do you have a fever: No - Review of Systems Constitutional: Chills, Diaphoresis EENT: reports: No Symptoms Reported Respiratory: reports: No Symptoms reported Cardiac: reports: No Symptoms Reported GI: reports: No Symptoms Reported : reports: No Symptoms Reported Musculoskeletal: reports: No Symptoms Reported Integumentary: reports: No Symptoms Reported Neuro: reports: No Symptoms reported Endocrine: reports: No Symptoms Reported Hematology: reports: No Symptoms Reported Psychiatric: reports: Judgement Intact, Orientated x3, Agitated, Anxious Other Systems: Reviewed and Negative Patient History - Patient Medical History Hx Anemia: No Hx Asthma: No Hx Chronic Obstructive Pulmonary Disease (COPD): No Hx Cancer: No Hx Cardiac Disorders: No Hx Congestive Heart Failure: No Hx Hypertension: No Hx Hypercholesterolemia: No Hx Pacemaker: No HX Cerebrovascular Accident: No Hx Seizures: No Hx Dementia: No Hx Diabetes: No Hx Gastrointestinal Disorders: No Hx Liver Disease: No Hx Genitourinary Disorders: No Hx Sexually Transmitted Disorders: Yes (HIV+) Hx Renal Disease (ESRD): No Hx Thyroid Disease: No Hx Human Immunodeficiency Virus (HIV): Yes (since ) Hx Hepatitis C: No Hx Depression: No Hx Suicide Attempt: No Hx Bipolar Disorder: No Hx Schizophrenia: No - Patient Surgical History Past Surgical History: No Hx Neurologic Surgery: No Hx Cataract Extraction: No Hx Cardiac Surgery: No Hx Lung Surgery: No Hx Breast Surgery: No Hx Breast Biopsy: No Hx Abdominal Surgery: No Hx Appendectomy: No Hx Cholecystectomy: No Hx Genitourinary Surgery: No Hx Section: No Hx Orthopedic Surgery: No Other Surgical History: L ear sx as a child., colonoscopy 5 years ago Anesthesia Reaction: No - PPD History Documented Results: Positive w/proof Implanted On Prior [facility] Admission?: No Results: CXR negative PPD to be Administered?: No - Smoking Cessation Smoking history: Never smoked Have you smoked in the past 12 months: No Cigars Per Day: 0 Hx Chewing Tobacco Use: No Initiated information on smoking cessation: No - Substances abused Alcohol Substance route: Oral Frequency: Daily Amount used: 6 pints vodka Age of first use: 19 Date of last use: 02/04/20 Crack Substance route: Smoking Frequency: Daily Amount used: $50-300 Age of first use: 29 Date of last use: 02/03/20 Admission Physical Exam S - Physical General Appearance: Yes: No Apparent Distress, Nourished, Appropriately Dressed HEENTM: Yes: EOMI, Hearing grossly Normal, Normal ENT Inspection, Normocephalic, Normal Voice, RASHAWN, Pharynx Normal, Tm's normal Respiratory: Yes: Chest Non-Tender, Lungs Clear, Normal Breath Sounds, No Respiratory Distress, No Accessory Muscle Use Neck: Yes: No masses,lesions,Nodules, Supple, Trachea in good position Breast: Yes: Within Normal Limits Cardiology: Yes: Regular Rhythm, Regular Rate, S1, S2 Abdominal: Yes: Normal Bowel Sounds, Non Tender, Flat, Soft Genitourinary: Yes: Within Normal Limits Back: Yes: Normal Inspection Musculoskeletal: Yes: full range of Motion, Gait Steady, Pelvis Stable Extremities: Yes: Normal Capillary Refill, Normal Inspection, Normal Range of Motion, Non-Tender 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, Fully Oriented, Alert, Motor Strength 5/5, Normal Mood/Affect, Normal Response Integumentary: Yes: Normal Color, Dry, Warm Lymphatic: Yes: Within Normal Limits - Diagnostic (1) Alcohol dependence with uncomplicated withdrawal Current Visit: Yes Status: Chronic (2) Asthma Current Visit: Yes Status: Chronic Qualifiers: Asthma severity: mild Asthma persistence: intermittent Asthma complication type: with status asthmaticus Qualified Code(s): J45.22 - Mild intermittent asthma with status asthmaticus (3) Cocaine dependence Current Visit: Yes Status: Chronic Qualifiers: Substance use status: uncomplicated Qualified Code(s): F14.20 - Cocaine dependence, uncomplicated (4) GERD (gastroesophageal reflux disease) Current Visit: Yes Status: Chronic Qualifiers: Esophagitis presence: without esophagitis Qualified Code(s): K21.9 - Gastro-esophageal reflux disease without esophagitis (5) HIV (human immunodeficiency virus infection) Current Visit: Yes Status: Chronic Qualifiers: HIV symptom status: unspecified Qualified Code(s): B20 - Human immunodeficiency virus [HIV] disease (6) Neuropathy Current Visit: Yes Status: Chronic (7) Positive PPD Current Visit: Yes Status: Resolved Cleared for Admission S - Detox or Rehab [facility] Level of Care: Medically Managed Detox Regimen/Protocol: Librium Claeared for Rehab Admission: No Screened but not Admitted - Documentation of Visit Screened but not Admitted: No Breathalyzer - Breathalyzer Breathalyzer: 0.199 Urine Drug Screen - Test Device Lot number: [id number] Expiration date: 03/14/21 - Control Is test valid?: Yes - Results Drug screen NEGATIVE: No Urine drug screen results: TALI-Cocaine Inpatient Rehab Admission - Rehab Decision to Admit Inpatient rehab admission?: No
[2020-02-04] MEDS ORDERED: MAGNESIUM CITRATE 300 ML BOTTLE PO PRN (12:57)
[2020-02-04] MEDS ORDERED: MENTHOL/PHENOL 1 EACH UD MM PRN (12:57)
[2020-02-04] MEDS ORDERED: NICOTINE POLACRILEX 2 MG GUM BUC PRN (12:57)
[2020-02-04] MEDS ORDERED: MAG HYDROX/AL HYDROX/SIMETH 30 ML UNIT-DOSE CUP PO PRN (12:57)
[2020-02-04] MEDS ORDERED: ACETAMINOPHEN 325 MG TABLET (FP) PO PRN ×2 (12:57)
[2020-02-04] MEDS ORDERED: METHOCARBAMOL 500 MG TABLET PO PRN (12:57)
[2020-02-04] MEDS ORDERED: IBUPROFEN 400 MG TABLET (FP) PO PRN (12:57)
[2020-02-04] MEDS ORDERED: MAGNESIUM HYDROX 2400MG/30ML ORAL SUSPENSION 30 ML CUP PO PRN (12:57)
[2020-02-04] MEDS ORDERED: chlordiazePOXIDE HCL 25 MG CAPSULE PO PRN (12:57)
[2020-02-04] MEDS ORDERED: BISMUTH SUBSALICYLATE 524 MG/30 ML UD PO PRN (12:57)
[2020-02-04] MEDS ORDERED: PREGABALIN 75 MG CAPSULE PO PRN (13:00)
[2020-02-04 13:20] VITALS: BMI 25.4
[2020-02-04] MEDS ORDERED: ONDANSETRON *ODT* 4 MG TABLET SL ONE (13:30)
[2020-02-04] MEDS ORDERED: NICOTINE 7 MG/24 HOURS TOPICAL PATCH TD SCH (13:30)
[2020-02-04] MEDS: ARTIFICIAL TEARS (POLYVINYL ALCOHOL) OPTH DROPS OS SCH ×3 (15:04→22:27)
[2020-02-04] MEDS: chlordiazePOXIDE HCL 25 MG CAPSULE PO SCH ×3 (15:05→22:27)
[2020-02-04] MEDS: PRENATAL VITAMINS W/ FOLIC ACID TABLET (FP) PO SCH (15:06)
[2020-02-04] MEDS: hydrOXYzine PAMOATE 25 MG CAPSULE (FP) PO SCH ×3 (15:09→22:27)
[2020-02-04 17:26] LABS: HEMATOCRIT 44.7 % (35.4-49); HEMOGLOBIN 14.7 GM/dL (11.7-16.9); MCH 32.4 pg (25.7-33.7); MCHC 32.9 g/dl (32.0-35.9); MEAN CELL VOLUME 98.4 fl (80-96); MEAN PLT VOLUME 10.3 fl (7.5-11.1); PLATELET COUNT 204 K/MM3 (134-434); RBC 4.54 M/mm3 (4.00-5.60); RDW 13.8 % (11.9-15.9)
[2020-02-04 17:29] LABS: ALBUMIN 4.4 g/dl (3.4-5.0); BILIRUBIN,TOTAL 0.6 mg/dL (0.2-1); BLOOD UREA NITROGEN 10.2 mg/dL (7-18); CALCIUM 9.1 mg/dL (8.5-10.1); CREATININE 1.2 mg/dL (0.55-1.3); POTASSIUM 3.9 mmol/L (3.5-5.1); TOT PROT 8.5 g/dl (6.4-8.2)
[2020-02-04] MEDS: MELATONIN 5 MG TABLETS PO SCH (22:27)
[2020-02-04] MEDS: THIAMINE HCL 100 MG TABLET (FP) PO SCH (22:27)
[2020-02-05] MEDS: chlordiazePOXIDE HCL 25 MG CAPSULE PO SCH ×4 (07:08→22:27)
[2020-02-05] MEDS: hydrOXYzine PAMOATE 25 MG CAPSULE (FP) PO SCH ×5 (07:08→22:27)
--- NOTE | 2020-02-05 09:59 | PN ---
S Progress Note (SOAP) Subjective: Pt complains of nausea, tremor, anxiety, sweats, itchy skin Objective: 02/05/20 10:01 See below Assessment: 02/05/20 09:56 54 year old male with history of alcohol dependence with alcohol withdrawal, cocaine use disorder, nicotine dependence. Alcohol: 6 pints of vodka , started at age 19 and last used today. he does not admit to seizures, has had blackouts this week, and endorses an eye facilities operator daily. Cocaine: $50 - 300 daily, 2-3 times per month, started at age 29 and last used 02/03/20. Nicotine: never done PMH; Asthma, HIV disease, Neuropathy Psurg: Left ear as a child Psych: None He is domiciled in the [place], no legal issues PE GN:WDWN, in bed, in no distress MS: nl mentation Motor: moves limbs well Coord: nl Laboratory Tests 02/04/20 02/04/20 02/04/20 13:15 13:15 13:15 WBC 5.0 RBC 4.54 Hgb 14.7 Hct 44.7 MCV 98.4 H MCH 32.4 MCHC 32.9 RDW 13.8 Plt Count 204 D MPV 10.3 Sodium 141 Potassium 3.9 Chloride 109 H Carbon Dioxide 20 L Anion Gap 12 BUN 10.2 Creatinine 1.2 Est GFR (CKD-EPI)AfAm 78.43 Est GFR (CKD-EPI)NonAf 67.67 Random Glucose 101 Calcium 9.1 Total Bilirubin 0.6 AST 56 H ALT 49 Alkaline Phosphatase 80 Total Protein 8.5 H Albumin 4.4 Syphilis Serology Non-reactive Home Medication List Medication Instructions Recorded Confirmed Type Multivitamin [One Daily] 1 each OS DAILY 05/01/18 02/04/20 History Pregabalin [Lyrica] 150 mg PO TID PRN MDD 450 10/08/19 02/04/20 History Propylene Glycol/Peg 400/Pf 1 drop OS QID 10/08/19 02/04/20 History [Systane 0.3-0.4% Eye Drop] Elviteg/Cob/Emtri/Tenof Alafen 1 each PO HS 02/04/20 02/04/20 History [Genvoya Tablet] Active Medications Generic Name Dose Route Start Last Admin Trade Name Freq PRN Reason Stop Dose Admin Acetaminophen 650 mg 02/04/20 12:57 Tylenol - PO Q6H PRN PAIN LEVEL 4 - 6 Acetaminophen 650 mg 02/04/20 12:57 Tylenol - PO Q6H PRN FEVER Al Hydroxide/Mg Hydroxide 30 ml 02/04/20 12:57 Mylanta Oral Suspension - PO Q6H PRN DYSPEPSIA Artificial Tears 1 drop 02/04/20 14:00 02/04/20 22:27 Artificial Tears OS Not Given QID MARRY Bismuth Subsalicylate 524 mg 02/04/20 12:57 Pepto-Bismol - PO Q1H PRN DIARRHEA Chlordiazepoxide HCl 50 mg 02/04/20 13:15 02/05/20 07:08 Librium - PO 02/05/20 23:01 Not Given A4N-QTW MARRY Chlordiazepoxide HCl 25 mg 02/06/20 05:00 Librium - PO 02/06/20 23:01 F1T-XHX MARRY Chlordiazepoxide HCl 25 mg 02/04/20 12:57 Librium - PO 02/06/20 23:59 Q4H PRN WITHDRAWAL(CONT SUBST) Chlordiazepoxide HCl 10 mg 02/07/20 05:00 Librium - PO 02/07/20 23:01 W5A-QPP MARRY Chlordiazepoxide HCl 10 mg 02/08/20 05:00 Librium - PO 02/08/20 17:01 Q12H MARRY Chlordiazepoxide HCl 10 mg 02/07/20 00:00 Librium - PO 02/08/20 00:00 Q4H PRN WITHDRAWAL(CONT SUBST) Chlordiazepoxide HCl 10 mg 02/09/20 05:00 Librium - PO 02/09/20 05:01 ONCE@0500 ONE Eucalyptus/Menthol/Phenol/Sorbitol 1 each 02/04/20 12:57 Cepastat Lozenge - MM 02/10/20 12:58 Q4H PRN SORE THROAT Hydroxyzine Pamoate 25 mg 02/04/20 14:00 02/05/20 07:08 Vistaril - PO 02/10/20 12:58 Not Given Q4HWA MARRY Ibuprofen 400 mg 02/04/20 12:57 Motrin - PO Q6H PRN PAIN LEVEL 1 - 3 Magnesium Citrate 300 ml 02/04/20 12:57 Citroma - PO Q48H PRN CONSTIPATION Magnesium Hydroxide 30 ml 02/04/20 12:57 Milk Of Magnesia - PO PRN PRN CONSTIPATION Melatonin 5 mg 02/04/20 22:00 02/04/20 22:27 Melatonin PO 5 mg HS MARRY Administration Methocarbamol 500 mg 02/04/20 12:57 Robaxin - PO 02/10/20 12:58 Q6H PRN MUSCLE SPASMS Nicotine 7 mg 02/04/20 13:30 02/04/20 15:06 Nicoderm Patch - TD Not Given DAILY [facility] Nicotine Polacrilex 2 mg 02/04/20 12:57 Nicorette Gum - BUC Q2H PRN NICOTINE REPLACEMENT RX Pregabalin 150 mg 02/04/20 13:00 Lyrica - PO 02/07/20 12:59 TID PRN Neuropathy Multivit/Folic Acid/Iron 1 tab 02/04/20 13:00 02/04/20 15:06 Vitamins ([facility]) - PO Not Given DAILY [facility] Thiamine HCl 100 mg 02/04/20 22:00 02/04/20 22:27 Vitamin B1 - PO 100 mg HS MARRY Administration Vital Signs Temperature 98.1 F 02/05/20 08:35 Pulse Rate 76 02/05/20 08:35 Respiratory Rate 18 02/05/20 08:35 Blood Pressure 108/65 02/05/20 08:35 O2 Sat by Pulse Oximetry (%) 99 02/05/20 08:35 02/05/20 10:01 1. Alcohol use disorder Plan: 1. Alcohol use disorder on Librium protocol 2. encouraged to use prns for complaints
[2020-02-05] MEDS: ARTIFICIAL TEARS (POLYVINYL ALCOHOL) OPTH DROPS OS SCH ×4 (10:17→22:26)
[2020-02-05] MEDS: PRENATAL VITAMINS W/ FOLIC ACID TABLET (FP) PO SCH (10:18)
--- NOTE | 2020-02-05 12:03 | CONSULT ---
[facility] Psychiatric Consult - Data Date of interview: 02/05/20 Admission source: [facility] Identifying data: Readmission to [address] [place] [id number] for this 54 y/o AA male self-referred for detoxification treatment. JUANA issues : alcohol, cocaine, nicotine. Patient is single, never , no children, domiciled, unemployed and supported on [facility] benefits (self-report). Substance Abuse History: Discussed with the patient. JUANA profile as follows : Smoking history: Never smoked. Have you smoked in the past 12 months: No. Cigars Per Day: 0. Hx Chewing Tobacco Use: No. Initiated information on smoking cessation: No. - Substances abused. Alcohol. Substance route: Oral. Frequency: Daily. Amount used: 6 pints vodka. Age of first use: 19. Date of last use: 02/04/20. Crack. Substance route: Smoking. Frequency: Daily. Amount used: $50-300. Age of first use: 29. Date of last use: 02/03/20 Medical History: Medical profile is remarkable for HIV infection since 1997 (on ART medications), neuropathy, cardiomyopathy, hypertension, GERD and bronchial asthma. Psychiatric History: Patient denies history of psychiatric hospitalizations. He endorses his diagnosis as Anxiety Disorder. Mr Moncada was in contact with a private therapist, in [facility], to address issues of stress and substance abuse (from 2014 to 2016). Since that period, the patient has been receiving psychiatric care on a sporadic basis (from [facility] treatment centers : detox + rehab). History of one suicide attempt in 2019 (deliberate overdose with pregabalin). Physical/Sexual Abuse/Trauma History: Patient denies history of abuse. Additional Comment: Urine drug screen results: TALI-Cocaine. Noted. Mental Status Exam - Mental Status Exam Alert and Oriented to: Time, Place, Person Cognitive Function: Good Patient Appearance: Well Groomed Mood: Withdrawn Affect: Appropriate, Mood Congruent Patient Behavior: Fatigued, Appropriate, Cooperative Speech Pattern: Clear, Appropriate Voice Loudness: Normal Thought Process: Intact, Goal Oriented Thought Disorder: Not Present Hallucinations: Denies Suicidal Ideation: Denies Homicidal Ideation: Denies Insight/Judgement: Poor Sleep: Poorly, Difficulty falling asleep Appetite: Good Gait/Station: Normal Psychiatric Findings - Problem List ([place] 1, 2,3) (1) Alcohol dependence with uncomplicated withdrawal Status: Acute (2) Cocaine dependence Status: Chronic Qualifiers: Substance use status: uncomplicated Qualified Code(s): F14.20 - Cocaine dependence, uncomplicated (3) Substance induced mood disorder Status: Chronic (4) Insomnia Status: Chronic (5) Non-compliance Status: Chronic - Initial Treatment Plan Initial Treatment Plan: Psychoeducation. Sleep hygiene. Support. Detoxification. Patient insists on resuming seroquel (to address insomnia). Side effects/benefits discussed with patient. Seroquel 100 mg po hs. Mr Moncada granted consent (verbal) to MD. [place].
[2020-02-05] MEDS: ELVITEG/COB/EMTRI/TENOF (GENVOYA) TABLET (NF) PO SCH (22:27)
[2020-02-05] MEDS: MELATONIN 5 MG TABLETS PO SCH (22:27)
[2020-02-05] MEDS: THIAMINE HCL 100 MG TABLET (FP) PO SCH (22:27)
[2020-02-05] MEDS: QUEtiapine FUMARATE 100 MG TABLET (FP) PO SCH (22:27)
[2020-02-06] MEDS: chlordiazePOXIDE HCL 25 MG CAPSULE PO SCH ×4 (06:15→22:31)
[2020-02-06] MEDS: hydrOXYzine PAMOATE 25 MG CAPSULE (FP) PO SCH ×5 (06:15→22:29)
[2020-02-06] MEDS: ARTIFICIAL TEARS (POLYVINYL ALCOHOL) OPTH DROPS OS SCH ×4 (10:27→22:28)
[2020-02-06] MEDS: PRENATAL VITAMINS W/ FOLIC ACID TABLET (FP) PO SCH (10:29)
--- NOTE | 2020-02-06 15:35 | PN ---
[facility] CIWA - CIWA Score Nausea/Vomitin-Mild Nausea/No Vomiting Muscle Tremors: 3 Anxiety: 3 Agitation: 1-Slight > Activity Paroxysmal Sweats: No Perspiration Orientation: 0-Oriented Tacttile Disturbances: 1-Very Mild Itch/Numbness Auditory Disturbances: 0-None Visual Disturbances: 1-Very Mild Sensitivity Headache: 0-None Present CIWA-Ar Total Score: 10 BHS Progress Note (SOAP) Subjective: Anxious, Fatigue, Interrupted Sleep, Tremors. Objective: Patient A & O X 3, Observed Ambulating on Detox Unit. In No Acute Distress. 02/06/20 15:36 Assessment: 02/06/20 15:36 WITHDRAWAL SYMPTOMS. ELEVATED AST LEVEL. 02/06/20 15:36 Plan: Continue Detox. Increase Daily Oral Water Intake.
[2020-02-06] MEDS: ELVITEG/COB/EMTRI/TENOF (GENVOYA) TABLET (NF) PO SCH (22:27)
[2020-02-06] MEDS: QUEtiapine FUMARATE 100 MG TABLET (FP) PO SCH (22:27)
[2020-02-06] MEDS: THIAMINE HCL 100 MG TABLET (FP) PO SCH (22:27)
[2020-02-06] MEDS: MELATONIN 5 MG TABLETS PO SCH (22:28)
[2020-02-07] MEDS ORDERED: chlordiazePOXIDE HCL 10 MG CAPSULE PO PRN
[2020-02-07] MEDS: hydrOXYzine PAMOATE 25 MG CAPSULE (FP) PO SCH ×5 (06:10→22:19)
[2020-02-07] MEDS: chlordiazePOXIDE HCL 10 MG CAPSULE PO SCH ×4 (06:10→22:21)
--- NOTE | 2020-02-07 09:42 | PN ---
S CIWA - CIWA Score Nausea/Vomitin-Mild Nausea/No Vomiting Muscle Tremors: 1-None Visible, but [place] Anxiety: 2 Agitation: 1-Slight > Activity Paroxysmal Sweats: No Perspiration Orientation: 0-Oriented Tacttile Disturbances: 1-Very Mild Itch/Numbness Auditory Disturbances: 0-None Visual Disturbances: 2-Mild Sensitivity Headache: 1-Very Mild CIWA-Ar Total Score: 9 BHS Progress Note (SOAP) Subjective: 54 years old male admitted on 02/04/20 for alcohol withdrawal sx management treating with librium detox regiment seen by psychiatrist abimael serosong feeling better today good hygiene mr gonzalez states that he has prescribed razer burn cream in his property that he brought in upon admission to detox no visible razer burn injury noted at this time vasline to razer burn area daily Objective: 02/07/20 09:43 Vital Signs - 24 hr 02/06/20 02/06/20 02/06/20 10:59 13:02 14:41 Temperature 97.3 F L 96.4 F L 97.2 F L Pulse Rate 88 82 82 Respiratory 18 18 18 Rate Blood Pressure 106/69 108/64 108/70 O2 Sat by Pulse 100 97 100 Oximetry (%) 02/06/20 02/07/20 02/07/20 17:50 06:57 08:46 Temperature 98.2 F 97.3 F L 96.9 F L Pulse Rate 71 52 L 71 Respiratory 16 18 17 Rate Blood Pressure 108/64 102/63 119/74 O2 Sat by Pulse 99 Oximetry (%) Laboratory Tests 02/04/20 02/04/20 02/04/20 13:15 13:15 13:15 WBC 5.0 RBC 4.54 Hgb 14.7 Hct 44.7 MCV 98.4 H MCH 32.4 MCHC 32.9 RDW 13.8 Plt Count 204 D MPV 10.3 Sodium 141 Potassium 3.9 Chloride 109 H Carbon Dioxide 20 L Anion Gap 12 BUN 10.2 Creatinine 1.2 Est GFR (CKD-EPI)AfAm 78.43 Est GFR (CKD-EPI)NonAf 67.67 Random Glucose 101 Calcium 9.1 Total Bilirubin 0.6 AST 56 H ALT 49 Alkaline Phosphatase 80 Total Protein 8.5 H Albumin 4.4 Syphilis Serology Non-reactive COVID-19 (JONNATHAN) 02/04/20 14:15 WBC RBC Hgb Hct MCV MCH MCHC RDW Plt Count MPV Sodium Potassium Chloride Carbon Dioxide Anion Gap BUN Creatinine Est GFR (CKD-EPI)AfAm Est GFR (CKD-EPI)NonAf Random Glucose Calcium Total Bilirubin AST ALT Alkaline Phosphatase Total Protein Albumin Syphilis Serology COVID-19 (JONNATHAN) Not detected lab noted Assessment: 02/07/20 09:43 alcohol withdrawal Plan: librium regiment
[2020-02-07] MEDS: ARTIFICIAL TEARS (POLYVINYL ALCOHOL) OPTH DROPS OS SCH ×4 (10:28→22:20)
[2020-02-07] MEDS: PRENATAL VITAMINS W/ FOLIC ACID TABLET (FP) PO SCH (10:29)
[2020-02-07] MEDS: PETROLATUM, WHITE 30 GM TUBE TP SCH (10:32)
[2020-02-07] MEDS: THIAMINE HCL 100 MG TABLET (FP) PO SCH (22:19)
[2020-02-07] MEDS: MELATONIN 5 MG TABLETS PO SCH (22:19)
[2020-02-07] MEDS: QUEtiapine FUMARATE 100 MG TABLET (FP) PO SCH (22:20)
[2020-02-07] MEDS: ELVITEG/COB/EMTRI/TENOF (GENVOYA) TABLET (NF) PO SCH (22:20)
[2020-02-08] MEDS: chlordiazePOXIDE HCL 10 MG CAPSULE PO SCH ×2 (05:57→17:22)
[2020-02-08] MEDS: hydrOXYzine PAMOATE 25 MG CAPSULE (FP) PO SCH ×4 (05:57→17:22)
[2020-02-08] MEDS: PRENATAL VITAMINS W/ FOLIC ACID TABLET (FP) PO SCH (09:54)
[2020-02-08] MEDS: PETROLATUM, WHITE 30 GM TUBE TP SCH (09:55)
[2020-02-08] MEDS: ARTIFICIAL TEARS (POLYVINYL ALCOHOL) OPTH DROPS OS SCH ×3 (09:55→17:22)
--- NOTE | 2020-02-08 09:58 | PN ---
S CIWA - CIWA Score Nausea/Vomitin-No Nausea/No Vomiting Muscle Tremors: 1-None Visible, but [place] Anxiety: 1-Mildly Anxious Agitation: 1-Slight > Activity Paroxysmal Sweats: No Perspiration Orientation: 0-Oriented Tacttile Disturbances: 1-Very Mild Itch/Numbness Auditory Disturbances: 0-None Visual Disturbances: 1-Very Mild Sensitivity Headache: 1-Very Mild CIWA-Ar Total Score: 6 BHS Progress Note (SOAP) Subjective: 54 years old male admitted on 02/04/20 for alcohol withdrawal sx management treating with librium detox regiment feeling better today less tremor voice dissatisfaction that razer burn gel no available that he brought in upon admission mr gonzalez discusses aftercare with staff [facility] in patient rehab for alcohol recovery mr gonzalez may return to infectious disease specialist for behavior and psychosocial therapies Objective: 02/08/20 10:07 Vital Signs - 24 hr 02/07/20 02/07/20 02/08/20 16:35 20:52 05:46 Temperature 97.1 F L 97.1 F L 97.5 F L Pulse Rate 65 69 58 L Respiratory 16 18 18 Rate Blood Pressure 113/74 117/75 89/61 L O2 Sat by Pulse 100 100 Oximetry (%) 02/08/20 08:38 Temperature 97.1 F L Pulse Rate 76 Respiratory 18 Rate Blood Pressure 111/71 O2 Sat by Pulse 100 Oximetry (%) Laboratory Tests 02/04/20 02/04/20 02/04/20 13:15 13:15 13:15 WBC 5.0 RBC 4.54 Hgb 14.7 Hct 44.7 MCV 98.4 H MCH 32.4 MCHC 32.9 RDW 13.8 Plt Count 204 D MPV 10.3 Sodium 141 Potassium 3.9 Chloride 109 H Carbon Dioxide 20 L Anion Gap 12 BUN 10.2 Creatinine 1.2 Est GFR (CKD-EPI)AfAm 78.43 Est GFR (CKD-EPI)NonAf 67.67 Random Glucose 101 Calcium 9.1 Total Bilirubin 0.6 AST 56 H ALT 49 Alkaline Phosphatase 80 Total Protein 8.5 H Albumin 4.4 Syphilis Serology Non-reactive COVID-19 (JONNATHAN) 02/04/20 14:15 WBC RBC Hgb Hct MCV MCH MCHC RDW Plt Count MPV Sodium Potassium Chloride Carbon Dioxide Anion Gap BUN Creatinine Est GFR (CKD-EPI)AfAm Est GFR (CKD-EPI)NonAf Random Glucose Calcium Total Bilirubin AST ALT Alkaline Phosphatase Total Protein Albumin Syphilis Serology COVID-19 (JONNATHAN) Not detected lab noted Assessment: 02/08/20 10:07 alcohol withdrawal hiv Plan: librium regiment genvoya
[2020-02-08] MEDS ORDERED: CLINDAMYCIN PHOSPHATE 1% TOPICAL SOLUTION 30 ML BOTTLE TP PRN (11:16)
--- NOTE | 2020-02-08 14:08 | DS ---
[facility] Detox Discharge Summary Admission Date: 02/04/20 Discharge Date: 02/08/20 - History Present History: Alcohol Dependence Additional Comments: 54 years old male admitted on 02/04/20 for alcohol withdrawal sx management treated with [facility] detox regiment mr gonzalez prefers to go [facility] today instead of estimated discharge date of 02/09/20 seen by psychiatrist abimael allred for inosmnia mr gonzalez is alert oriented x 3 speech clearly coherently ambulating with steady gaits respiratory clear lung sounds bilaterally on auscultation abdomen soft no rebound tenderness extremities full range of motion Pertinent Past History: time for discharge 46 minutes transferred order from detox to rehab - Physical Exam Results Vital Signs: Vital Signs Temperature 97.1 F L 02/08/20 12:31 Pulse Rate 77 02/08/20 12:31 Respiratory Rate 18 02/08/20 12:31 Blood Pressure 125/74 02/08/20 12:31 O2 Sat by Pulse Oximetry (%) 100 02/08/20 12:31 Pertinent Admission Physical Exam Findings: alcohol withdrawal Laboratory Tests 02/04/20 02/04/20 02/04/20 13:15 13:15 13:15 WBC 5.0 RBC 4.54 Hgb 14.7 Hct 44.7 MCV 98.4 H MCH 32.4 MCHC 32.9 RDW 13.8 Plt Count 204 D MPV 10.3 Sodium 141 Potassium 3.9 Chloride 109 H Carbon Dioxide 20 L Anion Gap 12 BUN 10.2 Creatinine 1.2 Est GFR (CKD-EPI)AfAm 78.43 Est GFR (CKD-EPI)NonAf 67.67 Random Glucose 101 Calcium 9.1 Total Bilirubin 0.6 AST 56 H ALT 49 Alkaline Phosphatase 80 Total Protein 8.5 H Albumin 4.4 Syphilis Serology Non-reactive COVID-19 (JONNATHAN) 02/04/20 14:15 WBC RBC Hgb Hct MCV MCH MCHC RDW Plt Count MPV Sodium Potassium Chloride Carbon Dioxide Anion Gap BUN Creatinine Est GFR (CKD-EPI)AfAm Est GFR (CKD-EPI)NonAf Random Glucose Calcium Total Bilirubin AST ALT Alkaline Phosphatase Total Protein Albumin Syphilis Serology COVID-19 (JONNATHAN) Not detected lab noted - Treatment Hospital Course: Detox Protocol Followed, Detoxed Safely, Responded well, Discharged Condition Good, Rehab Referral Accepted Patient has Accepted a Rehab Referral to: [facility] - Medication Discharge Medications: Ambulatory Orders Multivitamin [One Daily] 1 each OS DAILY 05/01/18 Pregabalin [Lyrica] 150 mg PO TID PRN MDD 450 10/08/19 Propylene Glycol/Peg 400/Pf [Systane 0.3-0.4% Eye Drop] 1 drop OS QID 10/08/19 Elviteg/Cob/Emtri/Tenof Alafen [Genvoya Tablet] 1 each PO HS 02/04/20 - Diagnosis (1) Alcohol dependence with uncomplicated withdrawal Current Visit: Yes Status: Acute (2) Asthma Current Visit: Yes Status: Chronic Qualifiers: Asthma severity: mild Asthma persistence: intermittent Asthma complication type: with status asthmaticus Qualified Code(s): J45.22 - Mild intermittent asthma with status asthmaticus (3) GERD (gastroesophageal reflux disease) Current Visit: Yes Status: Chronic Qualifiers: Esophagitis presence: without esophagitis Qualified Code(s): K21.9 - Gastro-esophageal reflux disease without esophagitis (4) HIV (human immunodeficiency virus infection) Current Visit: Yes Status: Chronic Qualifiers: HIV symptom status: asymptomatic Qualified Code(s): Z21 - Asymptomatic human immunodeficiency virus [HIV] infection status (5) Neuropathy Current Visit: Yes Status: Chronic (6) Positive PPD Current Visit: Yes Status: Resolved - AMA Did Patient Leave Against Medical Advice: No
[2020-02-08 17:09] VITALS: BP 118/75; PULSE 72; TEMP 97.3
[2020-02-09] MEDS ORDERED: chlordiazePOXIDE HCL 10 MG CAPSULE PO ONE (05:00)
== END 2020-02-08 17:55 | disposition other institution (70) | DRG 774 ==
LOC: YASAS 11:47 → Y3N 12:23
PROVIDERS: ADMIT Allergy & Immunology; ATTEND Allergy & Immunology
PROC: HZ2ZZZZ Detoxification Services for Substance Abuse Treatment (ICD-10-PCS; principal; 2020-02-04)
DX: F10.230 Alcohol dependence with withdrawal, uncomplicated (principal); F14.20 Cocaine dependence, uncomplicated; F19.24 Other psychoactive substance dependence with psychoactive substance-induced mood disorder; Z21 Asymptomatic human immunodeficiency virus [HIV] infection status; G62.9 Polyneuropathy, unspecified; G47.00 Insomnia, unspecified; K21.9 Gastro-esophageal reflux disease without esophagitis; J45.909 Unspecified asthma, uncomplicated; R74.0 Nonspecific elevation of levels of transaminase and lactic acid dehydrogenase [LDH]; R76.11 Nonspecific reaction to tuberculin skin test without active tuberculosis; Z56.0 Unemployment, unspecified; Z91.19 Patient's noncompliance with other medical treatment and regimen
CPT/HCPCS: 36415; 80053; 85027; 86780; U0003

== ENCOUNTER 2020-02-08 17:58 | Inpatient (IN) | payer OTHER ==
--- NOTE | 2020-02-08 14:10 | HP ---
[facility] Rehab Assess/Revision - Admission History Admitted to Rehab from: [facility] Date of Admission to Rehab: 02/08/20 - Findings Detox History & Physical reviewed: Yes Concur with findings: Yes Comments/Additional Findings: transferred from detox to rehab admission as per protocol Inpatient Rehab Admission - Rehab Decision to Admit Inpatient rehab admission?: Yes - Initial Determination Are CD services needed?: Yes Free of communicable disease: Yes Not in need of hospitalization: Yes - Rehab Admission Criteria Previous failed treatment: Yes Poor recovery environment: Yes Comorbidities: Yes Lacks judgement: Yes Patient is meeting Inpatient Rehab admission criteria:: Yes
[~2020-02-08 17:58] MED LIST: ACETAMINOPHEN 325 MG TABLET (FP) PO PRN; IBUPROFEN 400 MG TABLET (FP) PO PRN; LOPERAMIDE HCL 2 MG CAPSULE PO PRN; MAG HYDROX/AL HYDROX/SIMETH 30 ML UNIT-DOSE CUP PO PRN; MAGNESIUM CITRATE 300 ML BOTTLE PO PRN; MAGNESIUM HYDROX 2400MG/30ML ORAL SUSPENSION 30 ML CUP PO PRN; NICOTINE POLACRILEX 2 MG GUM BC PRN; P-EPHED 60MG/TRIPROLIDI 2.5MG TABLET PO PRN; guaiFENesin 200 MG/10 ML 10 ML UNIT-DOSE CUPS PO PRN; hydrOXYzine PAMOATE 25 MG CAPSULE (FP) PO PRN
[2020-02-08] MEDS: ARTIFICIAL TEARS (POLYVINYL ALCOHOL) OPTH DROPS OU SCH ×2 (18:11→21:23)
[2020-02-08] MEDS: THIAMINE HCL 100 MG TABLET (FP) PO SCH (21:23)
[2020-02-08] MEDS: QUEtiapine FUMARATE 100 MG TABLET (FP) PO SCH (21:23)
[2020-02-08] MEDS: MELATONIN 5 MG TABLETS PO SCH (21:23)
[2020-02-08] MEDS: ELVITEG/COB/EMTRI/TENOF (GENVOYA) TABLET (NF) PO SCH (21:24)
[2020-02-09] MEDS ORDERED: PT OWN MED DRAWER 7, Y5N ONE ×2 (09:05→09:37)
[2020-02-09] MEDS: PRENATAL VITAMINS W/ FOLIC ACID TABLET (FP) PO SCH (09:36)
[2020-02-09] MEDS: NICOTINE 7 MG/24 HOURS TOPICAL PATCH TD SCH (09:38)
--- NOTE | 2020-02-09 10:48 | CONSULT ---
[facility] Psychiatric Consult - Data Date of interview: 02/09/20 Admission source: 3N Identifying data: Mr Moncada is a 54 years old single Black male, unemployed receiving SSD, domiciled admitted from detox on 02/08/20 for inpatient rehabilitation treatment for alcohol and cocaine Substance Abuse History: Reports history of alcohol and cocaine use. Refer to addiction counselor's summary for further information Medical History: Significant for HIV infection since 1997 (on ART medications), neuropathy, cardiomyopathy, hypertension, GERD, bronchial asthma and surgery left ear as a child Psychiatric History: Patient denies history of psychiatric hospitalizations. He endorses his diagnosis as Anxiety Disorder. Mr Moncada was in contact with a private therapist, in [facility], to address issues of stress and substance abuse (from 2014 to 2016). Since that period, the patient has been receiving psychiatric care on a sporadic basis (from [facility] treatment centers : detox + rehab). History of one suicide attempt in 2019 (deliberate overdose with pregabalin).
[2020-02-09] MEDS: ARTIFICIAL TEARS (POLYVINYL ALCOHOL) OPTH DROPS OU SCH ×4 (10:59→21:24)
[2020-02-09] MEDS ORDERED: MASKS NR ONE (12:43)
--- NOTE | 2020-02-09 13:10 | CONSULT ---
[facility] Psychiatric Consult - Data Date of interview: 02/09/20 Admission source: Transfer from [address] [place] [address]. Identifying data: Detoxification completed at [address] [place] [address] for this 54 y/o AA male. Now enlisting in rehabilitation treatment at [address] for maintenance of sobriety + management of insomnia. [facility] issues : alcohol, cocaine, nicotine. Patient is single, never , no children, domiciled, unemployed and supported on [facility] benefits (self-report). Substance Abuse History: Rediscussed with the patient in this session. [facility] profile as follows : Smoking history: Never smoked. Have you smoked in the past 12 months: No. Cigars Per Day: 0. Hx Chewing Tobacco Use: No. Initiated information on smoking cessation: No. - Substances abused. Alcohol. Substance route: Oral. Frequency: Daily. Amount used: 6 pints vodka. Age of first use: 19. Date of last use: 02/04/20. Crack. Substance route: Smoking. Frequency: Daily. Amount used: $50-300. Age of first use: 29. Date of last use: 02/03/20. Medical History: Medical profile is remarkable for HIV infection since 1997 (on ART medications), neuropathy, cardiomyopathy, hypertension, GERD and bronchial asthma. Medical History: Medical History: Medical profile is remarkable for HIV infection since 1997 (on ART medications), neuropathy, cardiomyopathy, hypertension, GERD and bronchial asthma. 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 No history of psychiatric hospitalizations. Patient endorses his diagnosis as Anxiety Disorder. Mr Moncada was in contact with a private therapist, in [facility], to address issues of stress and substance abuse (from 2014 to 2016). Since that period, the patient has been receiving psychiatric care on a sporadic basis (from [facility] treatment centers : detox + rehab). History of one suicide attempt in 2019 (deliberate overdose with pregabalin). Physical/Sexual Abuse/Trauma History: Patient denies. Additional Comment: Urine drug screen results: TALI-Cocaine. Noted on admission to detox unit (02/05/20). Mental Status Exam - Mental Status Exam Alert and Oriented to: Time, Place, Person Cognitive Function: Good Patient Appearance: Well Groomed Mood: Hopeful Affect: Appropriate, Normal Range Patient Behavior: Appropriate, Cooperative Speech Pattern: Clear, Appropriate Voice Loudness: Normal Thought Process: Intact, Goal Oriented Thought Disorder: Not Present Hallucinations: Denies Suicidal Ideation: Denies Homicidal Ideation: Denies Insight/Judgement: Fair Sleep: Poorly, Difficulty falling asleep Appetite: Good Gait/Station: Normal Psychiatric Findings - Problem List ([place] 1, 2,3) (1) Alcohol use disorder Current Visit: Yes Status: Chronic (2) Cocaine dependence Current Visit: Yes Status: Chronic Qualifiers: Substance use status: uncomplicated Qualified Code(s): F14.20 - Cocaine dependence, uncomplicated (3) Insomnia Current Visit: Yes Status: Chronic - Initial Treatment Plan Initial Treatment Plan: Rehabilitation initiated. Sleep hygiene. MAT services discussed. Psychoeducation. Continue seroquel 100 mg po hs. Side effects/benefits discussed with the patient. Informed consent granted to MD. Calle.
[2020-02-09] MEDS: MELATONIN 5 MG TABLETS PO SCH (21:23)
[2020-02-09] MEDS: ELVITEG/COB/EMTRI/TENOF (GENVOYA) TABLET (NF) PO SCH (21:23)
[2020-02-09] MEDS: THIAMINE HCL 100 MG TABLET (FP) PO SCH (21:23)
[2020-02-09] MEDS: QUEtiapine FUMARATE 100 MG TABLET (FP) PO SCH (21:23)
[2020-02-10] MEDS: NICOTINE 7 MG/24 HOURS TOPICAL PATCH TD SCH (10:00)
[2020-02-10] MEDS: PRENATAL VITAMINS W/ FOLIC ACID TABLET (FP) PO SCH (10:10)
[2020-02-10] MEDS: CLINDAMYCIN PHOSPHATE 1% TOPICAL SOLUTION 30 ML BOTTLE TP PRN (10:11)
[2020-02-10] MEDS: ARTIFICIAL TEARS (POLYVINYL ALCOHOL) OPTH DROPS OU SCH ×4 (10:11→21:09)
[2020-02-10] MEDS: MELATONIN 5 MG TABLETS PO SCH (21:09)
[2020-02-10] MEDS: THIAMINE HCL 100 MG TABLET (FP) PO SCH (21:09)
[2020-02-10] MEDS: QUEtiapine FUMARATE 100 MG TABLET (FP) PO SCH (21:09)
[2020-02-10] MEDS ORDERED: PT OWN MED DRAWER 7, Y5N ONE (21:34)
[2020-02-10] MEDS: ELVITEG/COB/EMTRI/TENOF (GENVOYA) TABLET (NF) PO SCH (23:05)
[2020-02-11] MEDS ORDERED: PT OWN MED DRAWER 7, Y5N ONE (08:43)
--- NOTE | 2020-02-11 09:24 | PN ---
[facility] Progress Note Note: Patient transferred from detox to [facility]. Stable, no complaints, no medical issues at this time. Labs, problem list, detox notes reviewed. Will continue to monitor. Vital Signs Period Temp Pulse Resp BP Sys/Mohan Pulse Ox Last 24 Hr 97.5 F-97.7 F 71 18 102/71 97-100
[2020-02-11] MEDS: ARTIFICIAL TEARS (POLYVINYL ALCOHOL) OPTH DROPS OU SCH ×4 (09:58→21:14)
[2020-02-11] MEDS: NICOTINE 7 MG/24 HOURS TOPICAL PATCH TD SCH (09:59)
[2020-02-11] MEDS: PRENATAL VITAMINS W/ FOLIC ACID TABLET (FP) PO SCH (09:59)
[2020-02-11] MEDS: CLINDAMYCIN PHOSPHATE 1% TOPICAL SOLUTION 30 ML BOTTLE TP PRN (10:00)
[2020-02-11] MEDS ORDERED: MASKS NR ONE (15:43)
[2020-02-11] MEDS: MELATONIN 5 MG TABLETS PO SCH (21:13)
[2020-02-11] MEDS: QUEtiapine FUMARATE 100 MG TABLET (FP) PO SCH (21:14)
[2020-02-11] MEDS: ELVITEG/COB/EMTRI/TENOF (GENVOYA) TABLET (NF) PO SCH (21:14)
[2020-02-11] MEDS: THIAMINE HCL 100 MG TABLET (FP) PO SCH (21:14)
[2020-02-12] MEDS: PRENATAL VITAMINS W/ FOLIC ACID TABLET (FP) PO SCH (10:06)
[2020-02-12] MEDS: NICOTINE 7 MG/24 HOURS TOPICAL PATCH TD SCH (10:07)
[2020-02-12] MEDS ORDERED: PT OWN MED DRAWER 7, Y5N ONE ×2 (10:08→21:06)
[2020-02-12] MEDS: ARTIFICIAL TEARS (POLYVINYL ALCOHOL) OPTH DROPS OU SCH ×4 (10:08→21:18)
[2020-02-12] MEDS: CLINDAMYCIN PHOSPHATE 1% TOPICAL SOLUTION 30 ML BOTTLE TP PRN (10:08)
[2020-02-12] MEDS: QUEtiapine FUMARATE 100 MG TABLET (FP) PO SCH (21:06)
[2020-02-12] MEDS: MELATONIN 5 MG TABLETS PO SCH (21:06)
[2020-02-12] MEDS: THIAMINE HCL 100 MG TABLET (FP) PO SCH (21:06)
[2020-02-12] MEDS: ELVITEG/COB/EMTRI/TENOF (GENVOYA) TABLET (NF) PO SCH (21:07)
[2020-02-13] MEDS ORDERED: PT OWN MED DRAWER 7, Y5N ONE ×2 (08:25→18:10)
[2020-02-13] MEDS: CLINDAMYCIN PHOSPHATE 1% TOPICAL SOLUTION 30 ML BOTTLE TP PRN ×2 (09:53→21:23)
[2020-02-13] MEDS: PRENATAL VITAMINS W/ FOLIC ACID TABLET (FP) PO SCH (09:53)
[2020-02-13] MEDS: ARTIFICIAL TEARS (POLYVINYL ALCOHOL) OPTH DROPS OU SCH ×4 (09:53→21:22)
[2020-02-13] MEDS: NICOTINE 7 MG/24 HOURS TOPICAL PATCH TD SCH (09:59)
[2020-02-13] MEDS ORDERED: MASKS NR ONE (21:21)
[2020-02-13] MEDS: MELATONIN 5 MG TABLETS PO SCH (21:22)
[2020-02-13] MEDS: QUEtiapine FUMARATE 100 MG TABLET (FP) PO SCH (21:22)
[2020-02-13] MEDS: THIAMINE HCL 100 MG TABLET (FP) PO SCH (21:22)
[2020-02-13] MEDS: ELVITEG/COB/EMTRI/TENOF (GENVOYA) TABLET (NF) PO SCH (21:23)
[2020-02-14] MEDS ORDERED: PT OWN MED DRAWER 7, Y5N ONE ×5 (08:31→22:42)
[2020-02-14] MEDS: PRENATAL VITAMINS W/ FOLIC ACID TABLET (FP) PO SCH (09:44)
[2020-02-14] MEDS: ARTIFICIAL TEARS (POLYVINYL ALCOHOL) OPTH DROPS OU SCH ×4 (09:45→21:10)
[2020-02-14] MEDS: NICOTINE 7 MG/24 HOURS TOPICAL PATCH TD SCH (09:45)
[2020-02-14] MEDS: CLINDAMYCIN PHOSPHATE 1% TOPICAL SOLUTION 30 ML BOTTLE TP PRN ×2 (09:46→21:11)
[2020-02-14] MEDS: THIAMINE HCL 100 MG TABLET (FP) PO SCH (21:10)
[2020-02-14] MEDS: QUEtiapine FUMARATE 100 MG TABLET (FP) PO SCH (21:10)
[2020-02-14] MEDS: MELATONIN 5 MG TABLETS PO SCH (21:10)
[2020-02-14] MEDS: ELVITEG/COB/EMTRI/TENOF (GENVOYA) TABLET (NF) PO SCH (21:12)
[2020-02-15] MEDS: CLINDAMYCIN PHOSPHATE 1% TOPICAL SOLUTION 30 ML BOTTLE TP PRN (10:10)
[2020-02-15] MEDS: NICOTINE 7 MG/24 HOURS TOPICAL PATCH TD SCH (10:11)
[2020-02-15] MEDS: PRENATAL VITAMINS W/ FOLIC ACID TABLET (FP) PO SCH (10:11)
[2020-02-15] MEDS: ARTIFICIAL TEARS (POLYVINYL ALCOHOL) OPTH DROPS OU SCH ×4 (10:12→21:17)
[2020-02-15] MEDS ORDERED: PT OWN MED DRAWER 7, Y5N ONE (10:12)
[2020-02-15] MEDS: ELVITEG/COB/EMTRI/TENOF (GENVOYA) TABLET (NF) PO SCH (21:16)
[2020-02-15] MEDS: THIAMINE HCL 100 MG TABLET (FP) PO SCH (21:16)
[2020-02-15] MEDS: MELATONIN 5 MG TABLETS PO SCH (21:16)
[2020-02-15] MEDS: QUEtiapine FUMARATE 100 MG TABLET (FP) PO SCH (21:16)
[2020-02-16] MEDS: PRENATAL VITAMINS W/ FOLIC ACID TABLET (FP) PO SCH (10:11)
[2020-02-16] MEDS: ARTIFICIAL TEARS (POLYVINYL ALCOHOL) OPTH DROPS OU SCH ×4 (10:12→21:16)
[2020-02-16] MEDS: NICOTINE 7 MG/24 HOURS TOPICAL PATCH TD SCH (10:12)
[2020-02-16] MEDS: CLINDAMYCIN PHOSPHATE 1% TOPICAL SOLUTION 30 ML BOTTLE TP PRN (10:12)
[2020-02-16] MEDS: MELATONIN 5 MG TABLETS PO SCH (21:16)
[2020-02-16] MEDS: THIAMINE HCL 100 MG TABLET (FP) PO SCH (21:16)
[2020-02-16] MEDS: QUEtiapine FUMARATE 100 MG TABLET (FP) PO SCH (21:16)
[2020-02-16] MEDS: ELVITEG/COB/EMTRI/TENOF (GENVOYA) TABLET (NF) PO SCH (21:16)
[2020-02-17] MEDS: NICOTINE 7 MG/24 HOURS TOPICAL PATCH TD SCH (09:54)
[2020-02-17] MEDS: PRENATAL VITAMINS W/ FOLIC ACID TABLET (FP) PO SCH (09:54)
[2020-02-17] MEDS: CLINDAMYCIN PHOSPHATE 1% TOPICAL SOLUTION 30 ML BOTTLE TP PRN (09:55)
[2020-02-17] MEDS: ARTIFICIAL TEARS (POLYVINYL ALCOHOL) OPTH DROPS OU SCH ×4 (09:55→21:37)
[2020-02-17] MEDS: THIAMINE HCL 100 MG TABLET (FP) PO SCH (21:37)
[2020-02-17] MEDS: MELATONIN 5 MG TABLETS PO SCH (21:37)
[2020-02-17] MEDS: ELVITEG/COB/EMTRI/TENOF (GENVOYA) TABLET (NF) PO SCH (21:37)
[2020-02-17] MEDS: QUEtiapine FUMARATE 100 MG TABLET (FP) PO SCH (21:37)
[2020-02-18] MEDS ORDERED: PT OWN MED DRAWER 7, Y5N ONE ×2 (08:32→21:13)
[2020-02-18] MEDS: PRENATAL VITAMINS W/ FOLIC ACID TABLET (FP) PO SCH (10:08)
[2020-02-18] MEDS: CLINDAMYCIN PHOSPHATE 1% TOPICAL SOLUTION 30 ML BOTTLE TP PRN (10:08)
[2020-02-18] MEDS: ARTIFICIAL TEARS (POLYVINYL ALCOHOL) OPTH DROPS OU SCH ×4 (10:09→21:12)
[2020-02-18] MEDS: NICOTINE 7 MG/24 HOURS TOPICAL PATCH TD SCH (10:09)
[2020-02-18] MEDS: MELATONIN 5 MG TABLETS PO SCH (21:12)
[2020-02-18] MEDS: THIAMINE HCL 100 MG TABLET (FP) PO SCH (21:12)
[2020-02-18] MEDS: QUEtiapine FUMARATE 100 MG TABLET (FP) PO SCH (21:12)
[2020-02-18] MEDS: ELVITEG/COB/EMTRI/TENOF (GENVOYA) TABLET (NF) PO SCH (21:13)
[2020-02-19] MEDS ORDERED: PT OWN MED DRAWER 7, Y5N ONE ×4 (08:40→22:13)
[2020-02-19] MEDS: ARTIFICIAL TEARS (POLYVINYL ALCOHOL) OPTH DROPS OU SCH ×4 (09:40→21:46)
[2020-02-19] MEDS: PRENATAL VITAMINS W/ FOLIC ACID TABLET (FP) PO SCH (09:40)
[2020-02-19] MEDS: THIAMINE HCL 100 MG TABLET (FP) PO SCH (21:43)
[2020-02-19] MEDS: QUEtiapine FUMARATE 100 MG TABLET (FP) PO SCH (21:44)
[2020-02-19] MEDS: ELVITEG/COB/EMTRI/TENOF (GENVOYA) TABLET (NF) PO SCH (21:44)
[2020-02-19] MEDS: MELATONIN 5 MG TABLETS PO SCH (21:44)
[2020-02-19] MEDS: CLINDAMYCIN PHOSPHATE 1% TOPICAL SOLUTION 30 ML BOTTLE TP PRN (21:46)
[2020-02-20] MEDS ORDERED: MASKS NR ONE (08:58)
[2020-02-20] MEDS: PRENATAL VITAMINS W/ FOLIC ACID TABLET (FP) PO SCH (09:43)
[2020-02-20] MEDS: CLINDAMYCIN PHOSPHATE 1% TOPICAL SOLUTION 30 ML BOTTLE TP PRN (09:43)
[2020-02-20] MEDS: ARTIFICIAL TEARS (POLYVINYL ALCOHOL) OPTH DROPS OU SCH ×5 (09:44→21:16)
[2020-02-20] MEDS: QUEtiapine FUMARATE 100 MG TABLET (FP) PO SCH (21:16)
[2020-02-20] MEDS: THIAMINE HCL 100 MG TABLET (FP) PO SCH (21:16)
[2020-02-20] MEDS: MELATONIN 5 MG TABLETS PO SCH (21:16)
[2020-02-20] MEDS: ELVITEG/COB/EMTRI/TENOF (GENVOYA) TABLET (NF) PO SCH (21:16)
[2020-02-21] MEDS: CLINDAMYCIN PHOSPHATE 1% TOPICAL SOLUTION 30 ML BOTTLE TP PRN (09:40)
[2020-02-21] MEDS: PRENATAL VITAMINS W/ FOLIC ACID TABLET (FP) PO SCH (09:40)
[2020-02-21] MEDS: ARTIFICIAL TEARS (POLYVINYL ALCOHOL) OPTH DROPS OU SCH ×4 (09:41→21:31)
--- NOTE | 2020-02-21 13:28 | PN ---
S Progress Note Note: Psychiatric nurse practitioner note: Patient scheduled for discharge on 02/22/20. A 30 day prescription of Seroquel 100mg was electronically sent to [facility], [address] [place] [address].
[2020-02-21] MEDS: THIAMINE HCL 100 MG TABLET (FP) PO SCH (21:30)
[2020-02-21] MEDS: QUEtiapine FUMARATE 100 MG TABLET (FP) PO SCH (21:30)
[2020-02-21] MEDS: MELATONIN 5 MG TABLETS PO SCH (21:30)
[2020-02-21] MEDS: ELVITEG/COB/EMTRI/TENOF (GENVOYA) TABLET (NF) PO SCH (21:31)
[2020-02-22 07:15] VITALS: BP 109/68; PULSE 65; TEMP 97.8
--- NOTE | 2020-02-22 09:12 | DS ---
[facility] Rehab Discharge Summary - [facility] Rehab Discharge Summary Admission Date: 02/08/20 Discharge Date: 02/22/20 - History Present History: Alcohol dependence, Cocaine dependence - Discharge Physical Exam Vital Signs: Vital Signs Temperature 97.8 F 02/22/20 07:15 Pulse Rate 65 02/22/20 07:15 Respiratory Rate 18 02/22/20 07:15 Blood Pressure 109/68 02/22/20 07:15 O2 Sat by Pulse Oximetry (%) 98 02/22/20 07:15 Ambulatory Orders Multivitamin [One Daily] 1 each OS DAILY 05/01/18 Pregabalin [Lyrica] 150 mg PO TID PRN MDD 450 10/08/19 Propylene Glycol/Peg 400/Pf [Systane 0.3-0.4% Eye Drop] 1 drop OS QID 10/08/19 Quetiapine Fumarate [Seroquel -] 100 mg PO HS #30 tablet 02/21/20 Elviteg/Cob/Emtri/Tenof Alafen [Genvoya Tablet] 1 each PO HS #30 tablet 02/22/20 ROS: PATIENT DENIES CHEST PAIN, TREMORS, SWEATING AND SHAKES. PE: ALERT AND ORIENTED X 3 SKIN WARM AND DRY CAR S1S2 RESP CTA BL GI NT,ND EXT NO TREMORS, AMB AD GABBY NO VISIBLE EDEMA DENIES SI/HI A/P: ETOH DEPENDENCE COCAINE DEPENDENCE HIV+ PATIENT MEDICALLY STABLE FOR D/C AFTERCARE ARRANGED FOR [facility], APPT 02/23/2020 1PM - Treatment Discharge Condition: Discharge condition good Hospital Course: PATIENT COMPLETED REHAB TODAY FOR ALCOHOL DEPENDENCE. HE IS MEDICALLY STABLE AND DENIES SI/HI. DURING COURSE OF TREATMENT, PATIENT ATTENDED GROUP MEETINGS, EVALUATED AND TREATED BY PSYCH TEAM AND ATTENDED 1:1 SESSIONS WITH COUNSELING STAFF. AFTERCARE ARRANGED FOR [facility] AND APPT IS FOR 02/23/2020 AT 1PM. PATIENT MEDICALLY ADVISED TO FOLLOW UP WITH PCP RECOMMENDED AND TO CONTINUE WITH OUTPATIENT TREATMENT TO MAINTAIN SOBRIETY. - Medication Discharge Medications: Ambulatory Orders Multivitamin [One Daily] 1 each OS DAILY 05/01/18 Pregabalin [Lyrica] 150 mg PO TID PRN MDD 450 10/08/19 Propylene Glycol/Peg 400/Pf [Systane 0.3-0.4% Eye Drop] 1 drop OS QID 10/08/19 Quetiapine Fumarate [Seroquel -] 100 mg PO HS #30 tablet 02/21/20 Elviteg/Cob/Emtri/Tenof Alafen [Genvoya Tablet] 1 each PO HS #30 tablet 02/22/20 - Medication-Assisted Treatment (MAT) Medication-Assisted Treatment (MAT): No MAT Follow-up Referral: [facility] 02/23/2020 1PM - Discharge Instructions Diet, activity, other medical instructions: Diet: REG TOLERATED Activity: AMB AD GABBY Other medical instructions: F/U WITH PCP RECOMMENDED - Follow-up Referral Minutes to complete discharge: 35 - AMA Did Patient Leave Against Medical Advice: No
[2020-02-22] MEDS: PRENATAL VITAMINS W/ FOLIC ACID TABLET (FP) PO SCH (09:21)
[2020-02-22] MEDS: CLINDAMYCIN PHOSPHATE 1% TOPICAL SOLUTION 30 ML BOTTLE TP PRN (09:22)
[2020-02-22] MEDS: ARTIFICIAL TEARS (POLYVINYL ALCOHOL) OPTH DROPS OU SCH (09:23)
== END 2020-02-22 09:55 | disposition home or self-care (01) | DRG 772 ==
LOC: YASAS 17:58 → Y3W 17:59
PROVIDERS: ADMIT Allergy & Immunology; ATTEND Allergy & Immunology
PROC: HZ42ZZZ Group Counseling for Substance Abuse Treatment, Cognitive-Behavioral (ICD-10-PCS; principal; 2020-02-08)
DX: F10.20 Alcohol dependence, uncomplicated (principal); F14.20 Cocaine dependence, uncomplicated; Z21 Asymptomatic human immunodeficiency virus [HIV] infection status; G62.9 Polyneuropathy, unspecified; K21.9 Gastro-esophageal reflux disease without esophagitis; J45.909 Unspecified asthma, uncomplicated; I42.9 Cardiomyopathy, unspecified; G47.00 Insomnia, unspecified